=== PATIENT | male | born 1970 | race Two or more races ===

== ENCOUNTER 2017-02-16 23:30 | Emergency (ER) | payer MEDICAID, OTHER ==
[~2017-02-16] VITALS: Ht 167.6 cm; Wt 121.1 kg
[~2017-02-16 23:30] MED LIST: DIVA125T2; LEVE250T2
[2017-02-16 23:41] VITALS: BP 134/95
== END 2017-02-17 01:35 | disposition home or self-care (01) ==
LOC: ER 23:34
DX: S01.01XA Laceration without foreign body of scalp, initial encounter (principal); J45.909 Unspecified asthma, uncomplicated; R51 Headache; Z88.8 Allergy status to other drugs, medicaments and biological substances; Z85.038 Personal history of other malignant neoplasm of large intestine; W22.8XXA Striking against or struck by other objects, initial encounter; Y93.89 Activity, other specified; Y99.8 Other external cause status; Y92.89 Other specified places as the place of occurrence of the external cause
CPT/HCPCS: A4606; A6402; Z7610

== ENCOUNTER 2017-04-13 21:36 | Emergency (ER) | payer MEDICAID ==
[~2017-04-13] VITALS: Ht 165.1 cm; Wt 81.6 kg
[2017-04-13 21:48] VITALS: BP 159/69
== END 2017-04-13 22:11 | disposition home or self-care (01) ==
LOC: ER 21:36
DX: S61.412A Laceration without foreign body of left hand, initial encounter (principal); L08.9 Local infection of the skin and subcutaneous tissue, unspecified; E11.9 Type 2 diabetes mellitus without complications; J45.909 Unspecified asthma, uncomplicated; Z85.038 Personal history of other malignant neoplasm of large intestine; Z88.8 Allergy status to other drugs, medicaments and biological substances; W18.30XA Fall on same level, unspecified, initial encounter; Y92.89 Other specified places as the place of occurrence of the external cause; Y93.89 Activity, other specified; Y99.9 Unspecified external cause status
CPT/HCPCS: 99283; A4606; A6402; Z7610

== ENCOUNTER 2017-04-24 12:19 | Emergency (ER) | payer MEDICAID ==
[~2017-04-24] VITALS: Ht 170.2 cm; Wt 117.9 kg
--- NOTE | 2017-04-24 12:25 | NUR ---
pt bibra from home to er bed 10. c/o rue pain from picc line insertion site. pt thinks picc line is not working, per report, pt was seen by home nurse and was given iv antibiotics and finished it. pt is c/o swelling and thinks picc line is malfuunctioning. gowned and placed on monitor. vss. awaiting md crespo.
--- NOTE | 2017-04-24 12:29 | NUR ---
dr reyes at bedside for eval.
--- NOTE | 2017-04-24 12:37 | NUR ---
u/s tech at bedside for rue duplex ultrasound.
--- NOTE | 2017-04-24 13:09 | NUR ---
Patient discharged to home in stable condition. Written and verbal after care instructions given. Patient verbalizes understanding of instruction.
[2017-04-24 13:10] VITALS: BP 128/77
== END 2017-04-24 13:10 | disposition home or self-care (01) ==
LOC: ER 12:25
DX: M79.601 Pain in right arm (principal); Z45.2 Encounter for adjustment and management of vascular access device; E11.9 Type 2 diabetes mellitus without complications; J45.909 Unspecified asthma, uncomplicated; F17.200 Nicotine dependence, unspecified, uncomplicated; Z85.038 Personal history of other malignant neoplasm of large intestine; Z88.8 Allergy status to other drugs, medicaments and biological substances
CPT/HCPCS: 93971-TC; A4606; Z7610

== ENCOUNTER 2017-04-28 16:22 | Emergency (ER) | payer MEDICAID ==
[~2017-04-28] VITALS: Ht 170.2 cm; Wt 117.9 kg
[2017-04-28 18:22] LABS: LYMPHOCYTES # (AUTO) 2.3 /CMM (0.8-4.8); MEAN CORPUSCULAR HEMOGLOBIN 27 PG (26.0-33.0); MONOCYTES # (AUTO) 0.7 /CMM (0.1-1.30)
[2017-04-28 18:31] LABS: BASOPHILS # (AUTO) 0.3 /CMM (0.0-0.2); BASOPHILS % (AUTO) 2.6 % (0.0-2.0); EOSINOPHILS # (AUTO) 0.5 /CMM (0.0-0.7); EOSINOPHILS % (AUTO) 4.8 % (0.0-6.0); HEMATOCRIT 41 % (39-51); HEMOGLOBIN 13.6 g/dL (13.5-17.5); LYMPHOCYTES % (AUTO) 23.2 % (20.0-44.0); MEAN CORPUSCULAR HGB CONC 33 g/dl (31.0-36.0); MEAN CORPUSCULAR VOLUME 82 fL (80-96); MONOCYTES % (AUTO) 7.1 % (2.0-12.0); NEUTROPHILS # (AUTO) 6.3 /CMM (1.8-8.9); NEUTROPHILS % (AUTO) 62.3 % (43.0-81.0); PLATELET COUNT (AUTO) 174 /CMM (150-450); RDW COEFFICIENT OF VARIATION 14.1 (11.5-15.0); RED BLOOD CELL COUNT(AUTO) 5.05 MIL/uL (4.5-6.0); WHITE BLOOD COUNT (AUTO) 10.1 K/uL (4.3-11.0)
[2017-04-28 18:44] LABS: CALCIUM, SERUM 8.5 mg/dL (8.5-10.1); CREATININE 0.8 mg/dL (0.6-1.3); POTASSIUM 3.8 mmol/L (3.5-5.1)
[2017-04-28 18:49] LABS: ALBUMIN 3.3 g/dL (3.4-5.0); BILIRUBIN,DIRECT 0.1 mg/dL (0.0-0.2); BILIRUBIN,TOTAL 0.6 mg/dL (0.2-1.0)
--- NOTE | 2017-04-28 19:10 | NUR ---
46 YO MALE BB SELF. PT IS ALERT X 3, CAME TO ED FOR NEW PICC LINE INSERTION, ALSO C/O R LOWER BACK PAIN RADIATES TO R LOWER LEG. PT ASSISTED TO ER BED, SKIN WARM AND DRY, RR EVEN AND UNLABORED. PT GOWNED,PLACED ON TEXTILE EXAMINER. WILL COTNINUE TO MONITOR
--- NOTE | 2017-04-28 19:21 | NUR ---
URINE SAMPLE OBTAINED AND SENT TO LAB
--- NOTE | 2017-04-28 19:21 | NUR ---
URINE SAMPLE COLLECTED SENT TO LAB
[2017-04-28 19:25] LABS: APPEARANCE,URINE Clear (CLEAR); BILIRUBIN,URINE SMALL (NEGATIVE); BLOOD, URINE Trace-lysed Ery/uL (NEGATIVE); COLOR,URINE Dark (YELLOW); KETONES,URINE Negative (NEGATIVE); LEUKOCYTE ESTERASE ,URINE Negative (NEGATIVE); NITRITE, URINE Negative (NEGATIVE); PROTEIN,URINE 100 mg/dl (NEGATIVE); UGLUCOSE Negative (NEGATIVE)
[2017-04-28 19:48] LABS: BACTERIA,URINE None seen /HPF (None Seen); SQUAMOUS EPITHELIAL CELL,UR Few /HPF (None Seen); WBC,URINE 0-2 /HPF (0-3)
--- NOTE | 2017-04-28 19:53 | NUR ---
CALLED KIRSTIE FOR EMILY ZAMUDIO
--- NOTE | 2017-04-28 20:13 | NUR ---
Patient discharged to home in stable condition. Written and verbal after care instructions given. Patient verbalizes understanding of instruction.
[2017-04-28 20:14] VITALS: BP 118/60
== END 2017-04-28 20:16 | disposition home or self-care (01) ==
LOC: ER 16:25
DX: Z45.2 Encounter for adjustment and management of vascular access device (principal); N13.30 Unspecified hydronephrosis; E11.9 Type 2 diabetes mellitus without complications; Z79.4 Long term (current) use of insulin; E66.01 Morbid (severe) obesity due to excess calories; J45.909 Unspecified asthma, uncomplicated; F17.200 Nicotine dependence, unspecified, uncomplicated; I82.621 Acute embolism and thrombosis of deep veins of right upper extremity; R10.9 Unspecified abdominal pain; R79.1 Abnormal coagulation profile; Z98.890 Other specified postprocedural states; Z88.8 Allergy status to other drugs, medicaments and biological substances; Z79.01 Long term (current) use of anticoagulants; Z85.038 Personal history of other malignant neoplasm of large intestine
CPT/HCPCS: 36415; 71010-TC; 76770-TC; 80048-TC; 80076-TC; 81000-TC; 85025-TC; A4606; C1751; Z7610

== ENCOUNTER 2017-11-25 20:40 | Emergency (ER) | payer MEDICARE, OTHER ==
[~2017-11-25] VITALS: Ht 170.2 cm; Wt 122.9 kg
--- NOTE | 2017-11-25 20:40 | NUR ---
"IN CUSTODY; FEELS LIKE AM GONNA HAVE A SEIZURE; LAST ONE 6MONTHS AGO" BS [address] VSS NAD A/OX4 WILL CONTINUE TO MONITOR FOR ANY CHANGES DURING THE SHIFT.
[2017-11-25] MEDS ORDERED: DIVALPROEX SODIUM 500 MG TABLET.DR PO ONE (21:02)
[2017-11-25] MEDS ORDERED: LEVETIRACETAM (250 MG) 250 MG TABLET PO ONE (21:02)
--- NOTE | 2017-11-25 21:02 | NUR ---
ACCORDING TO POLICE PT HAD A "20 SECOND SEIZURE". PLACED ON NON REBREATHER 10L WITH SEZIURE PRECAUTIONS PLACED. AWAITING PT TO BE MORE ALERT IN ORDER TO GIVE MEDICATION ORDERED. ER MD MOREIRA MADE AWARE
[2017-11-25] MEDS: LEVETIRACETAM (250 MG) 250 MG TABLET PO ONE (21:13)
[2017-11-25] MEDS: DIVALPROEX SODIUM 500 MG TABLET.DR PO ONE (21:13)
--- NOTE | 2017-11-25 21:13 | NUR ---
PT STATED "WHAT HAPPENED" AFTER BECOMING MORE AWARE OF SURROUNDINGS. MEDICATION GIVEN ORDERED ONCE AWAKE ENOUGH
[2017-11-25 22:05] VITALS: BP 139/53
== END 2017-11-25 22:05 ==
LOC: ER 20:41
DX: G40.909 Epilepsy, unspecified, not intractable, without status epilepticus (principal); R42 Dizziness and giddiness; E11.9 Type 2 diabetes mellitus without complications; F17.200 Nicotine dependence, unspecified, uncomplicated; J45.909 Unspecified asthma, uncomplicated; Z85.038 Personal history of other malignant neoplasm of large intestine; Z88.8 Allergy status to other drugs, medicaments and biological substances
CPT/HCPCS: A4606; Z7610

== ENCOUNTER 2017-11-25 23:11 | Emergency (ER) | payer MEDICARE, OTHER ==
[~2017-11-25] VITALS: Ht 170.2 cm; Wt 122.5 kg
[2017-11-25 23:15] VITALS: BP 138/77
[2017-11-25 23:52] LABS: BASOPHILS # (AUTO) 0.1 /CMM (0.0-0.2); BASOPHILS % (AUTO) 0.9 % (0.0-2.0); HEMATOCRIT 43 % (39-51); HEMOGLOBIN 14.5 g/dL (13.5-17.5); LYMPHOCYTES # (AUTO) 1.7 /CMM (0.8-4.8); LYMPHOCYTES % (AUTO) 26.3 % (20.0-44.0); MEAN CORPUSCULAR HGB CONC 34 g/dl (31.0-36.0); MEAN CORPUSCULAR VOLUME 82 fL (80-96); MONOCYTES # (AUTO) 0.6 /CMM (0.1-1.30); NEUTROPHILS # (AUTO) 3.9 /CMM (1.8-8.9); NEUTROPHILS % (AUTO) 60.8 % (43.0-81.0); PLATELET COUNT (AUTO) 186 /CMM (150-450); RDW COEFFICIENT OF VARIATION 14.5 (11.5-15.0); RED BLOOD CELL COUNT(AUTO) 5.32 MIL/uL (4.5-6.0); WHITE BLOOD COUNT (AUTO) 6.5 K/uL (4.3-11.0)
[2017-11-25] MEDS: IV NS 0.9% 500 ML BAG IV ONE (23:53)
[2017-11-26 00:09] LABS: CALCIUM, SERUM 8.6 mg/dL (8.5-10.1); CARBON DIOXIDE 28 mmol/L (21-32); CHLORIDE 106 mmol/L (98-107); CREATININE 0.8 mg/dL (0.6-1.3); GLUCOSE 94 mg/dL (74-106); SODIUM SERUM 141 mmol/L (136-145); UREA NITROGEN, BLOOD 13 mg/dL (7-18)
[2017-11-26 00:12] LABS: INR 0.97 (0.87-1.13)
[2017-11-26 00:15] LABS: ALANINE AMINOTRANSFERASE 43 U/L (12-78); ALBUMIN 3.5 g/dL (3.4-5.0); ALCOHOL, BLOOD < 3 mg/dL (0-0); ALKALINE PHOSPHATASE 99 U/L (46-116); ASPARTATE AMINOTRANSFERASE 23 U/L (15-37); BILIRUBIN,DIRECT 0.1 mg/dL (0.0-0.2); BILIRUBIN,TOTAL 0.3 mg/dL (0.2-1.0)
== END 2017-11-26 00:21 | disposition home or self-care (01) ==
LOC: ER 23:13
DX: R56.9 Unspecified convulsions (principal); E11.9 Type 2 diabetes mellitus without complications; J45.909 Unspecified asthma, uncomplicated; F17.200 Nicotine dependence, unspecified, uncomplicated; Z85.038 Personal history of other malignant neoplasm of large intestine; Z88.8 Allergy status to other drugs, medicaments and biological substances
CPT/HCPCS: 36415; 80048-TC; 80076-TC; 82962-TC; 85025-TC; 85730-TC; G0480

== ENCOUNTER 2018-02-24 22:30 | Emergency (ER) | payer MEDICAID, OTHER ==
[~2018-02-24] VITALS: Ht 170.2 cm; Wt 122.5 kg
--- NOTE | 2018-02-24 23:00 | NUR ---
CALLED PT'S NAME THREE TIMES, NO RESPONSE, WILL TRY AGAIN AT LATER TIME. MADE AWARE
--- NOTE | 2018-02-25 00:12 | NUR ---
PT CALLED THREE TIMES, NO RESPONSE, NO PT STOOD UP OR MADE EYE CONTACT. WILL TRY AGAIN AT A LATER TIME
[2018-02-25 01:03] VITALS: BP 142/87
[2018-02-25] MEDS ORDERED: LIDOCAINE 2%-EPI 1:100,000 30 ML VIAL ONE (01:36)
== END 2018-02-25 02:46 | disposition home or self-care (01) ==
LOC: ER 22:32
DX: S90.552A Superficial foreign body, left ankle, initial encounter (principal); R56.9 Unspecified convulsions; I10 Essential (primary) hypertension; F31.9 Bipolar disorder, unspecified; F17.200 Nicotine dependence, unspecified, uncomplicated; Z76.0 Encounter for issue of repeat prescription; Z85.038 Personal history of other malignant neoplasm of large intestine; Z88.8 Allergy status to other drugs, medicaments and biological substances; Z88.2 Allergy status to sulfonamides; W45.8XXA Other foreign body or object entering through skin, initial encounter; Y93.89 Activity, other specified; Y92.89 Other specified places as the place of occurrence of the external cause; Y99.8 Other external cause status
CPT/HCPCS: 73610-TC; A4606; J3490; Z7610

== ENCOUNTER 2018-03-06 21:03 | Emergency (ER) | payer MEDICARE, MEDICAID ==
[~2018-03-06] VITALS: Ht 170.2 cm; Wt 122.5 kg
[2018-03-06] MEDS ORDERED: LIDOCAINE 1%-EPI 1:100,000 20 ML VIAL ONE (21:16)
[2018-03-06] MEDS ORDERED: TDAP [DIPH/PERTUSSIS/TET] 0.5 ML VIAL IM ONE ×2 (21:27→21:30)
[2018-03-06] MEDS ORDERED: LIDOCAINE 1%-EPI 1:100,000 20 ML VIAL TP ONE (21:30)
[2018-03-06] MEDS ORDERED: HYDROCODONE/APAP 5/325MG 1 EACH TABLET ONE (21:44)
[2018-03-06 21:55] VITALS: BP 164/78
[2018-03-06] MEDS ORDERED: HYDROCODONE/APAP 5/325MG 1 EACH TABLET PO ONE (22:00)
== END 2018-03-06 21:42 | disposition home or self-care (01) ==
LOC: ER 21:04
DX: S51.812A Laceration without foreign body of left forearm, initial encounter (principal); I10 Essential (primary) hypertension; E11.9 Type 2 diabetes mellitus without complications; F31.9 Bipolar disorder, unspecified; F17.200 Nicotine dependence, unspecified, uncomplicated; Z85.038 Personal history of other malignant neoplasm of large intestine; Z98.890 Other specified postprocedural states; Z88.8 Allergy status to other drugs, medicaments and biological substances; X99.2XXA Assault by sword or dagger, initial encounter; Y93.89 Activity, other specified; Y92.89 Other specified places as the place of occurrence of the external cause; Y99.8 Other external cause status
CPT/HCPCS: 90471; 90715; 99283; A4606; A6402; J3490; Z7610

== ENCOUNTER 2018-03-16 18:49 | Emergency (ER) | payer MEDICARE, MEDICAID ==
[~2018-03-16] VITALS: Ht 170.2 cm; Wt 121.1 kg
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
--- NOTE | 2018-03-16 18:50 | NUR ---
ER MD CAVAZOS AT BEDSIDE
[2018-03-16] MEDS ORDERED: MORPHINE SULFATE INJ 4 MG/ML DISP.SYRIN ONE (19:59)
[2018-03-16] MEDS ORDERED: ONDANSETRON HCL/PF 4 MG/2 ML VIAL ONE (19:59)
[2018-03-16] MEDS ORDERED: MORPHINE SULFATE INJ 2 MG/ML DISP.SYRIN IV ONE (20:00)
[2018-03-16] MEDS ORDERED: IV NS 0.9% 500 ML BAG IV ONE (20:00)
[2018-03-16] MEDS ORDERED: ONDANSETRON HCL/PF 4 MG/2 ML VIAL IVP ONE (20:00)
[2018-03-16 20:04] LABS: BASOPHILS % (AUTO) 0.6 % (0.0-2.0); EOSINOPHILS % (AUTO) 3.5 % (0.0-6.0); HEMATOCRIT 42 % (39-51); HEMOGLOBIN 13.6 g/dL (13.5-17.5); LYMPHOCYTES % (AUTO) 26.5 % (20.0-44.0); MEAN CORPUSCULAR HEMOGLOBIN 27 PG (26.0-33.0); MEAN CORPUSCULAR HGB CONC 33 g/dl (31.0-36.0); MEAN CORPUSCULAR VOLUME 83 fL (80-96); MONOCYTES # (AUTO) 0.6 /CMM (0.1-1.30); MONOCYTES % (AUTO) 8.4 % (2.0-12.0); NEUTROPHILS # (AUTO) 4.6 /CMM (1.8-8.9); PLATELET COUNT (AUTO) 242 /CMM (150-450); RDW COEFFICIENT OF VARIATION 13.3 (11.5-15.0); RED BLOOD CELL COUNT(AUTO) 5.04 MIL/uL (4.5-6.0); WHITE BLOOD COUNT (AUTO) 7.5 K/uL (4.3-11.0)
[2018-03-16 20:14] LABS: CALCIUM, SERUM 8.9 mg/dL (8.5-10.1); CARBON DIOXIDE 30 mmol/L (21-32); CHLORIDE 105 mmol/L (98-107); CREATININE 0.9 mg/dL (0.6-1.3); GLUCOSE 129 mg/dL (74-106); POTASSIUM 3.6 mmol/L (3.5-5.1); SODIUM SERUM 139 mmol/L (136-145); UREA NITROGEN, BLOOD 15 mg/dL (7-18)
[2018-03-16] MEDS ORDERED: IOHEXOL-350 100 ML VIAL IV ONE (20:16)
[2018-03-16 20:18] LABS: INR 0.98 (0.85-1.15)
[2018-03-16 20:19] LABS: ALANINE AMINOTRANSFERASE 31 U/L (12-78); ALBUMIN 3.4 g/dL (3.4-5.0); ALKALINE PHOSPHATASE 105 U/L (46-116); ASPARTATE AMINOTRANSFERASE 18 U/L (15-37); BILIRUBIN,DIRECT 0.1 mg/dL (0.0-0.2); BILIRUBIN,TOTAL 0.3 mg/dL (0.2-1.0); TOTAL PROTEIN, SERUM 7.8 g/dL (6.4-8.2)
[2018-03-16 20:22] LABS: TROPONIN I < 0.017 ng/mL (0.00-0.056)
--- NOTE | 2018-03-16 20:25 | NUR ---
PT TO CT
--- NOTE | 2018-03-16 20:41 | NUR ---
PT BACK FROM CT
[2018-03-16 22:13] VITALS: BP 144/97
== END 2018-03-16 22:14 | disposition home or self-care (01) ==
LOC: ER 19:08
DX: I27.20 Pulmonary hypertension, unspecified (principal); R07.89 Other chest pain; F31.9 Bipolar disorder, unspecified; F17.200 Nicotine dependence, unspecified, uncomplicated; E11.9 Type 2 diabetes mellitus without complications; J45.909 Unspecified asthma, uncomplicated; G40.909 Epilepsy, unspecified, not intractable, without status epilepticus; Z85.038 Personal history of other malignant neoplasm of large intestine; Z86.718 Personal history of other venous thrombosis and embolism; Z88.8 Allergy status to other drugs, medicaments and biological substances; Z88.2 Allergy status to sulfonamides
CPT/HCPCS: 36415; 71045; 71275; 80048; 80076; 84484; 85025; 85730; 93005; 96374; 96375; 99285; 99406; A4606; J2270; J2405; J7040; Q9967; Z7610

== ENCOUNTER 2018-04-21 14:17 | Emergency (ER) | payer MEDICARE, MEDICAID ==
[~2018-04-21] VITALS: Ht 170.2 cm; Wt 123.4 kg
[2018-04-21 14:17] VITALS: BP 158/87
== END 2018-04-21 16:54 | disposition home or self-care (01) ==
LOC: ER 14:19
DX: M25.561 Pain in right knee (principal); I10 Essential (primary) hypertension; E11.9 Type 2 diabetes mellitus without complications; F17.200 Nicotine dependence, unspecified, uncomplicated; F31.9 Bipolar disorder, unspecified; Z85.038 Personal history of other malignant neoplasm of large intestine; Z88.8 Allergy status to other drugs, medicaments and biological substances
CPT/HCPCS: 73564; 99284; A4606; Z7610

== ENCOUNTER 2018-08-05 03:38 | Emergency (ER) | payer MEDICARE, MEDICAID ==
[~2018-08-05] VITALS: Ht 170.2 cm; Wt 117.9 kg
--- NOTE | 2018-08-05 03:47 | NUR ---
PT [id number] FROM HOME COMPLAINING OF RIGHT LOWER EXTREMITY PAIN X1 DAY. STATES "MY RIGHT LEFT ALWAYS FEELS COLD." PT STATES HE HAD SPINAL SURGERY 07/08/2018. PT NORMALLY ABLE TO AMBULATE WITH CANE, STATES PAIN IS WORSE WITH AMBULATION. PT AAOX4. RESPIRATIONS EVEN AND UNLABORED. SKIN WARM AND INTACT. PT PLACED ON MONITOR, WILL CONTINUE TO MONITOR. WAITING MD EVALUATION
--- NOTE | 2018-08-05 03:56 | NUR ---
MD AT BEDSIDE FOR EVALUATION
[2018-08-05] MEDS ORDERED: ONDANSETRON 4 MG TAB.RAPDIS SL ONE (04:00)
[2018-08-05] MEDS ORDERED: HYDROCODONE/APAP 10/325MG 1 EA TABLET PO ONE (04:00)
[2018-08-05] MEDS ORDERED: HYDROCODONE/APAP 10/325MG 1 EA TABLET ONE ×2 (04:11→04:14)
[2018-08-05] MEDS ORDERED: ONDANSETRON 4 MG TAB.RAPDIS ONE ×2 (04:12→04:15)
--- NOTE | 2018-08-05 04:48 | NUR ---
ULTRASOUND AT BEDSIDE
--- NOTE | 2018-08-05 05:39 | NUR ---
DR. CAVAZOS SPOKE TO DR. BRADFORD, VASCULAR SX, RE: PT. DR BRADFORD IS NOT ON TONIGHT, DR CAVAZOS SPOKE TO AUTOMOBILE LIGHTS ASSEMBLER FOR DR. BRADFORD.
--- NOTE | 2018-08-05 06:01 | NUR ---
Patient discharged to home in stable condition. Written and verbal after care instructions given. Patient verbalizes understanding of instruction. Pt instructed not to drive, pt verbalized understanding
[2018-08-05 06:04] VITALS: BP 147/92
== END 2018-08-05 06:05 | disposition home or self-care (01) ==
LOC: ER 03:41
DX: I73.9 Peripheral vascular disease, unspecified (principal); G40.909 Epilepsy, unspecified, not intractable, without status epilepticus; F31.9 Bipolar disorder, unspecified; I10 Essential (primary) hypertension; F17.200 Nicotine dependence, unspecified, uncomplicated; Z85.038 Personal history of other malignant neoplasm of large intestine; Z88.8 Allergy status to other drugs, medicaments and biological substances
CPT/HCPCS: 93926-TC; 93971-TC; Q0162

== ENCOUNTER 2018-08-10 03:46 | Emergency (ER) | payer MEDICARE, MEDICAID ==
[~2018-08-10] VITALS: Ht 170.2 cm; Wt 121.1 kg
--- NOTE | 2018-08-10 04:50 | NUR ---
Pt came in complaining of pain and tingling sensation on his left arm and left leg which started last night. Pt describes his pain as 9/10 on scale. Pt is A, O/4, walks independently, on RA. Pt reports hx of back surgery in July 2018.
--- NOTE | 2018-08-10 05:50 | NUR ---
US in progress at BS.
--- NOTE | 2018-08-10 07:00 | NUR ---
US done; pt resting comfortably. VSS.
--- NOTE | 2018-08-10 07:32 | NUR ---
Pt resting comfortably in bed. Report given to KEVIN Davis, for DIOR.
--- NOTE | 2018-08-10 08:03 | NUR ---
Patient discharged to home in stable condition. Written and verbal after care instructions given. Patient verbalizes understanding of instruction.
[2018-08-10 08:04] VITALS: BP 132/68
== END 2018-08-10 08:08 | disposition home or self-care (01) ==
LOC: ER 03:46
DX: I73.89 Other specified peripheral vascular diseases (principal); R56.9 Unspecified convulsions; I10 Essential (primary) hypertension; E11.9 Type 2 diabetes mellitus without complications; F31.9 Bipolar disorder, unspecified; F17.200 Nicotine dependence, unspecified, uncomplicated; Z85.038 Personal history of other malignant neoplasm of large intestine; Z98.890 Other specified postprocedural states; Z88.8 Allergy status to other drugs, medicaments and biological substances
CPT/HCPCS: 93926; 93931; 93971 ×2; 99284; A4606; 93930-TC

== ENCOUNTER 2018-10-19 23:27 | Emergency (ER) | payer MEDICARE, MEDICAID ==
[~2018-10-19] VITALS: Ht 170.2 cm; Wt 121.6 kg
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
[2018-10-20 00:09] VITALS: BP 139/88
--- NOTE | 2018-10-20 00:46 | NUR ---
PT TAKEN TO CT.
[2018-10-20] MEDS ORDERED: IBUPROFEN 400 MG TABLET ONE (01:13)
[2018-10-20] MEDS ORDERED: IBUPROFEN 400 MG TABLET PO ONE (01:30)
--- NOTE | 2018-10-20 01:45 | NUR ---
[employer] AT BEDSIDE
== END 2018-10-20 02:09 | disposition home or self-care (01) ==
LOC: ER 23:45
DX: S01.01XA Laceration without foreign body of scalp, initial encounter (principal); S09.8XXA Other specified injuries of head, initial encounter; R42 Dizziness and giddiness; R56.9 Unspecified convulsions; E11.9 Type 2 diabetes mellitus without complications; I10 Essential (primary) hypertension; F31.9 Bipolar disorder, unspecified; F10.10 Alcohol abuse, uncomplicated; F17.200 Nicotine dependence, unspecified, uncomplicated; Y90.9 Presence of alcohol in blood, level not specified; Z98.890 Other specified postprocedural states; Z85.038 Personal history of other malignant neoplasm of large intestine; Z88.8 Allergy status to other drugs, medicaments and biological substances; Y04.8XXA Assault by other bodily force, initial encounter; Y93.89 Activity, other specified; Y92.89 Other specified places as the place of occurrence of the external cause; Y99.8 Other external cause status
CPT/HCPCS: 12001; 70450; 99284; A4606; A6402

== ENCOUNTER 2018-12-19 01:00 | Emergency (ER) | payer MEDICARE, MEDICAID ==
[~2018-12-19] VITALS: Ht 170.2 cm; Wt 117.9 kg
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
--- NOTE | 2018-12-19 01:19 | NUR ---
SEEN AND EXAMINED BY DR MOREIRA.
--- NOTE | 2018-12-19 01:31 | NUR ---
D/C THIS PATIENT. RAC -REDNESS, -FOREIGN BODY FOUND. INSTRUCTIONS GIVEN TO PATIENT. PATIENT LEFT ER AT THIS TIME AMBULATORY, BY SELF.
[2018-12-19 01:33] VITALS: BP 151/98
== END 2018-12-19 01:34 | disposition home or self-care (01) ==
LOC: ER 01:03
DX: L90.5 Scar conditions and fibrosis of skin (principal); R56.9 Unspecified convulsions; I10 Essential (primary) hypertension; E11.9 Type 2 diabetes mellitus without complications; F31.9 Bipolar disorder, unspecified; F41.9 Anxiety disorder, unspecified; F10.10 Alcohol abuse, uncomplicated; F17.200 Nicotine dependence, unspecified, uncomplicated; Y90.9 Presence of alcohol in blood, level not specified; Z90.49 Acquired absence of other specified parts of digestive tract; Z85.038 Personal history of other malignant neoplasm of large intestine; Z98.890 Other specified postprocedural states; Z88.8 Allergy status to other drugs, medicaments and biological substances; Z71.1 Person with feared health complaint in whom no diagnosis is made

== ENCOUNTER 2019-01-01 18:09 | Emergency (ER) | payer MEDICARE, MEDICAID ==
[~2019-01-01] VITALS: Ht 170.2 cm; Wt 113.4 kg
[2019-01-01 18:15] VITALS: BP 125/74
== END 2019-01-01 18:54 | disposition home or self-care (01) ==
LOC: ER 18:13
DX: S50.851A Superficial foreign body of right forearm, initial encounter (principal); R56.9 Unspecified convulsions; E11.9 Type 2 diabetes mellitus without complications; I10 Essential (primary) hypertension; F31.9 Bipolar disorder, unspecified; F10.10 Alcohol abuse, uncomplicated; F17.200 Nicotine dependence, unspecified, uncomplicated; Y90.9 Presence of alcohol in blood, level not specified; Z85.038 Personal history of other malignant neoplasm of large intestine; Z98.890 Other specified postprocedural states; Z88.8 Allergy status to other drugs, medicaments and biological substances; W45.8XXA Other foreign body or object entering through skin, initial encounter; Y93.89 Activity, other specified; Y92.89 Other specified places as the place of occurrence of the external cause; Y99.8 Other external cause status
CPT/HCPCS: Z7502

== ENCOUNTER 2019-01-12 18:07 | Emergency (ER) | payer MEDICARE, MEDICAID ==
[~2019-01-12] VITALS: Ht 170.2 cm; Wt 122.0 kg
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
[2019-01-12] MEDS ORDERED: CLINDAMYCIN 600 MG in IV D5W 100 ML IV ONE (18:30)
[2019-01-12] MEDS ORDERED: IV NS 0.9% 1,000 ML BAG IV ONE (18:30)
[2019-01-12] MEDS ORDERED: ONDANSETRON HCL/PF 4 MG/2 ML VIAL IVP ONE (18:30)
[2019-01-12 18:50] LABS: BASOPHILS # (AUTO) 0.1 /CMM (0.0-0.2); EOSINOPHILS % (AUTO) 3.7 % (0.0-6.0); HEMATOCRIT 40 % (39-51); HEMOGLOBIN 12.9 g/dL (13.5-17.5); MEAN CORPUSCULAR HGB CONC 33 g/dl (31.0-36.0); MEAN CORPUSCULAR VOLUME 81 fL (80-96); MONOCYTES # (AUTO) 0.8 /CMM (0.1-1.30); MONOCYTES % (AUTO) 10.1 % (2.0-12.0); NEUTROPHILS # (AUTO) 4.5 /CMM (1.8-8.9); NEUTROPHILS % (AUTO) 59.2 % (43.0-81.0); PLATELET COUNT (AUTO) 193 /CMM (150-450); RED BLOOD CELL COUNT(AUTO) 4.87 MIL/uL (4.5-6.0); WHITE BLOOD COUNT (AUTO) 7.6 K/uL (4.3-11.0)
--- NOTE | 2019-01-12 18:50 | NUR ---
WOUND CULTURE COLLECTED FROM RIGHT ARMPIT AND SENT TO LAB.
[2019-01-12] MEDS ORDERED: ONDANSETRON HCL/PF 4 MG/2 ML VIAL ONE (18:51)
[2019-01-12 18:59] LABS: CALCIUM, SERUM 8.2 mg/dL (8.5-10.1); CARBON DIOXIDE 26 mmol/L (21-32); CHLORIDE 106 mmol/L (98-107); CREATININE 0.9 mg/dL (0.6-1.3); GLUCOSE 113 mg/dL (74-106); POTASSIUM 3.7 mmol/L (3.5-5.1); SODIUM SERUM 142 mmol/L (136-145); UREA NITROGEN, BLOOD 16 mg/dL (7-18)
[2019-01-12 19:13] LABS: ALANINE AMINOTRANSFERASE 30 U/L (12-78); ALBUMIN 3.2 g/dL (3.4-5.0); ALKALINE PHOSPHATASE 119 U/L (46-116); ASPARTATE AMINOTRANSFERASE 20 U/L (15-37); BILIRUBIN,DIRECT 0.1 mg/dL (0.0-0.2); BILIRUBIN,TOTAL 0.2 mg/dL (0.2-1.0); TOTAL PROTEIN, SERUM 7.5 g/dL (6.4-8.2)
--- NOTE | 2019-01-12 19:18 | NUR ---
ENDORSED TO AMAN FOR DIOR.
--- NOTE | 2019-01-12 19:20 | NUR ---
REPORT REC'D FROM KEVIN DOYLE FOR DIOR.
--- NOTE | 2019-01-12 19:55 | NUR ---
IV removed. Catheter intact and site benign. Pressure and 4x4 applied to site. No bleeding noted. PT'S WOUND IS BEING IRRIGATED BY NEY EMT
--- NOTE | 2019-01-12 20:03 | NUR ---
Patient discharged to home in stable condition. Written and verbal after care instructions given. Patient verbalizes understanding of instruction AND RX. PT WAS INSTRUCTED TO RETURN IN 2 DAYS FOR A WOUND CHECK. VSS
--- NOTE | 2019-01-12 20:03 | NUR ---
Neri SALMERON NP IS AT THE BEDSIDE FOR WOUND PACKING.
[2019-01-12 20:05] VITALS: BP 125/75
== END 2019-01-12 20:05 | disposition home or self-care (01) ==
LOC: ER 18:11
DX: T81.49XA Infection following a procedure, other surgical site, initial encounter (principal); I10 Essential (primary) hypertension; E11.9 Type 2 diabetes mellitus without complications; F31.9 Bipolar disorder, unspecified; F17.200 Nicotine dependence, unspecified, uncomplicated; Z85.038 Personal history of other malignant neoplasm of large intestine; Z98.890 Other specified postprocedural states; Z88.8 Allergy status to other drugs, medicaments and biological substances; Z79.899 Other long term (current) drug therapy
CPT/HCPCS: 36415; 80048; 80076; 83605; 84484; 85025; 85730; 87040 ×2; 87070; 87077; 96365; 96375; 99283; A6407; J2405; J3490; J7030; J7060

== ENCOUNTER 2019-02-06 23:23 | Emergency (ER) | payer MEDICARE, MEDICAID ==
[~2019-02-06] VITALS: Ht 170.2 cm; Wt 117.9 kg
--- NOTE | 2019-02-07 01:26 | NUR ---
CALLED PT THREE TIMES IN WAITING ROOM. NO RESPONSE.
--- NOTE | 2019-02-07 01:44 | NUR ---
CALLED PT THREE TIMES IN WAITING ROOM. NO RESPONSE.
[2019-02-07 03:43] VITALS: BP 167/80
--- NOTE | 2019-02-07 03:59 | NUR ---
SEEN AND EXAMINED BY .
--- NOTE | 2019-02-07 04:17 | NUR ---
WOUND CARE DONE.
--- NOTE | 2019-02-07 04:29 | NUR ---
ENERGY CROP FARMER AT BEDSIDE FOR XRAY.
--- NOTE | 2019-02-07 05:10 | NUR ---
Patient discharged to home in stable condition. Written and verbal after care instructions given. Patient verbalizes understanding of instruction.
== END 2019-02-07 05:12 | disposition home or self-care (01) ==
LOC: ER 23:27
DX: M25.511 Pain in right shoulder (principal); R56.9 Unspecified convulsions; I10 Essential (primary) hypertension; F31.9 Bipolar disorder, unspecified; E11.9 Type 2 diabetes mellitus without complications; F10.10 Alcohol abuse, uncomplicated; F17.200 Nicotine dependence, unspecified, uncomplicated; Y90.9 Presence of alcohol in blood, level not specified; Z48.01 Encounter for change or removal of surgical wound dressing; Z85.038 Personal history of other malignant neoplasm of large intestine; Z98.890 Other specified postprocedural states; Z88.8 Allergy status to other drugs, medicaments and biological substances; W01.0XXA Fall on same level from slipping, tripping and stumbling without subsequent striking against object, initial encounter; Y93.89 Activity, other specified; Y92.89 Other specified places as the place of occurrence of the external cause; Y99.8 Other external cause status
CPT/HCPCS: 73030; 99283; A6403

== ENCOUNTER 2019-02-27 23:40 | Emergency (ER) | payer MEDICARE, MEDICAID ==
[~2019-02-27] VITALS: Ht 170.2 cm; Wt 117.9 kg
[2019-02-28] MEDS ORDERED: LIDOCAINE 0.5%-EPI 1:200,000 50 ML VIAL ONE (00:55)
[2019-02-28] MEDS ORDERED: KETOROLAC TROMETHAMINE INJ 30 MG/ML VIAL IM ONE (01:30)
[2019-02-28] MEDS ORDERED: KETOROLAC TROMETHAMINE INJ 30 MG/ML VIAL ONE (01:31)
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
--- NOTE | 2019-02-28 03:33 | NUR ---
AT [facility] SUTURING LAC
--- NOTE | 2019-02-28 03:54 | NUR ---
Patient discharged to home in stable condition. Written and verbal after care instructions given. Patient verbalizes understanding of instruction.
[2019-02-28 03:57] VITALS: BP 128/78
== END 2019-02-28 04:01 | disposition home or self-care (01) ==
LOC: ER 23:42
DX: S61.412A Laceration without foreign body of left hand, initial encounter (principal); R56.9 Unspecified convulsions; F31.9 Bipolar disorder, unspecified; I10 Essential (primary) hypertension; E11.9 Type 2 diabetes mellitus without complications; F10.10 Alcohol abuse, uncomplicated; F17.200 Nicotine dependence, unspecified, uncomplicated; Y90.9 Presence of alcohol in blood, level not specified; Z85.038 Personal history of other malignant neoplasm of large intestine; Z98.890 Other specified postprocedural states; Z88.8 Allergy status to other drugs, medicaments and biological substances; W22.8XXA Striking against or struck by other objects, initial encounter; Y93.89 Activity, other specified; Y92.89 Other specified places as the place of occurrence of the external cause; Y99.8 Other external cause status
CPT/HCPCS: 12002; 73130; 96372; 99283; A6403; J1885; J3490

== ENCOUNTER 2019-03-11 03:08 | Emergency (ER) | payer MEDICARE, MEDICAID ==
[~2019-03-11] VITALS: Ht 170.2 cm; Wt 117.9 kg
[2019-03-11 03:12] VITALS: BP 174/84
[2019-03-11] MEDS ORDERED: CEPHALEXIN MONOHYDRATE 500 MG CAPSULE PO ONE ×2 (04:00→04:21)
== END 2019-03-11 04:26 | disposition home or self-care (01) ==
LOC: ER 03:19
DX: T81.49XA Infection following a procedure, other surgical site, initial encounter (principal); I10 Essential (primary) hypertension; E11.9 Type 2 diabetes mellitus without complications; F31.9 Bipolar disorder, unspecified; F17.200 Nicotine dependence, unspecified, uncomplicated; Z98.890 Other specified postprocedural states; Z85.038 Personal history of other malignant neoplasm of large intestine; Z88.8 Allergy status to other drugs, medicaments and biological substances; Z79.899 Other long term (current) drug therapy
CPT/HCPCS: 29125; 99283; A6403

== ENCOUNTER 2019-04-21 02:53 | Emergency (ER) | payer MEDICARE, MEDICAID ==
[~2019-04-21] VITALS: Ht 170.2 cm; Wt 122.5 kg
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
[2019-04-21] MEDS ORDERED: CEFTRIAXONE 1 G VIAL ONE (03:10)
[2019-04-21] MEDS ORDERED: HYDROCODONE/APAP 10/325MG 1 EA TABLET ONE (03:10)
[2019-04-21] MEDS ORDERED: ONDANSETRON 4 MG TAB.RAPDIS ONE (03:10)
--- NOTE | 2019-04-21 03:26 | NUR ---
[employer] STILL AT BEDSIDE. XRAY AWAITING TO BE TAKEN.
[2019-04-21] MEDS ORDERED: CEFTRIAXONE 1 G VIAL IM ONE (03:30)
[2019-04-21] MEDS ORDERED: HYDROCODONE/APAP 10/325MG 1 EA TABLET PO ONE (03:30)
[2019-04-21] MEDS ORDERED: ONDANSETRON 4 MG TAB.RAPDIS SL ONE (03:30)
--- NOTE | 2019-04-21 04:13 | NUR ---
Patient discharged to home in stable condition. Written and verbal after care instructions given. Patient verbalizes understanding of instruction. Pt ambulatory with a steady gait
[2019-04-21 04:14] VITALS: BP 158/96
== END 2019-04-21 04:24 | disposition home or self-care (01) ==
LOC: ER 02:55
DX: S60.552A Superficial foreign body of left hand, initial encounter (principal); S69.82XA Other specified injuries of left wrist, hand and finger(s), initial encounter; R56.9 Unspecified convulsions; I10 Essential (primary) hypertension; E11.9 Type 2 diabetes mellitus without complications; F31.9 Bipolar disorder, unspecified; F10.10 Alcohol abuse, uncomplicated; F17.200 Nicotine dependence, unspecified, uncomplicated; Y90.9 Presence of alcohol in blood, level not specified; Z71.6 Tobacco abuse counseling; Z85.038 Personal history of other malignant neoplasm of large intestine; Z98.890 Other specified postprocedural states; Z88.8 Allergy status to other drugs, medicaments and biological substances; W45.8XXA Other foreign body or object entering through skin, initial encounter; Y93.89 Activity, other specified; Y92.89 Other specified places as the place of occurrence of the external cause; Y99.8 Other external cause status
CPT/HCPCS: 73130; 96372; 99283; 99406; A6403; J0696; Q0162

== ENCOUNTER 2019-04-25 03:07 | Inpatient (IN) | payer MEDICARE, MEDICAID ==
[~2019-04-25] VITALS: Ht 170.2 cm; Wt 121.1 kg
--- NOTE | 2019-04-25 07:42 | NUR ---
RN OPENING/ADMISSION NOTE PT WAS BROUGHT TO ROOM AT 0648 IN STABLE CONDITION, A/O X4 BREATHING EVEN AND UNLABORED ON RA, NO S/S OF ANY DISTRESS OR PAIN NOTED AT THIS TIME, IV IS PATENT AND INTACT, NOTED TO HAVE MULTIPLE WOUNDS ON BODY, ON TELE MONITOR, SAFETY PRECAUTIONS IN PLACE, CALL LIGHT WITHIN REACH, WILL MONITOR ACCORDINGLY
--- NOTE | 2019-04-25 07:55 | NUR ---
RN NOTE PHOTOS OF SKIN WOUND DOCUMENTED AT THIS TIME, PT REFUSED FOR LOWER HALF OF BODY BUT WHEN CHANGED NO WOUNDS WERE NOTED. PT WAS NOTED TO HAVE UPPER BODY WOUNDS WHICH WERE DOCUMENTED IN THE CHART.
[2019-04-25 08:00] VITALS: BP 127/88
--- NOTE | 2019-04-25 08:00 | NUR ---
RN NOTE MADE AWARE THAT PT IS ON THE FLOOR, HE WILL SEE PT AND WILL IMPLEMENT ORDERS. WILL AWAIT FOR ORDERS AND WILL MONITOR ACCORDINGLY
--- NOTE | 2019-04-25 08:40 | NUR ---
RN NOTE SEEN PT AT THIS TIME MADE AWARE THAT NEED ADMISSION ORDERS ARE NEEDED, WILL AWAIT FOR ORDERS.
[2019-04-25] MEDS ORDERED: CEPH-570 PO (08:52)
[2019-04-25] MEDS ORDERED: ALBUT2 CONTNEB (08:52)
[2019-04-25] MEDS ORDERED: OXYC30TA86 PO (08:52)
[2019-04-25] MEDS ORDERED: CANCER MED (08:52)
[2019-04-25 11:35] VITALS: BP 176/93
--- NOTE | 2019-04-25 11:48 | NUR ---
RN NOTE DR WONG PAGED REGARDING PT BEING IN PAIN AND NEEDING PAIN MEDICINE, ORDER FOR NORCO GIVEN AT THIS TIME, WILL IMPLEMENT ACCORDINGLY
--- NOTE | 2019-04-25 12:53 | NUR ---
WOUND CARE CONSULT: PT PRESENTS WITH WOUND TO RT FOREHEAD AND TO LEFT HAND, PRESENT ON ADMISSION. PT REFUSED FULL SKIN ASSESSMENT. PT IS CONTINENT PER NURSING REPORT AND INDEPENDENT WITH BED MOBILITY. RECOMMEND SURGICAL CONSULT. DR ASHRAF NOTIFIED OF CONSULT REQUEST. WILL SEE PRN. DEFER TO SURGICAL TEAM FOR WOUND TREATMENT PLAN.
[2019-04-25 16:00] VITALS: BP 160/76
[2019-04-25] MEDS ORDERED: LIDOCAINE 1%-EPI 1:100,000 20 ML VIAL TP STA (16:09)
[2019-04-25] MEDS: HYDROCODONE/APAP 5/325MG 1 EACH TABLET PO PRN (16:18)
[2019-04-25] MEDS: NEOMY SULF/BACITRAC ZN/POLY 15 GM TUBE TP SCH (17:34)
--- NOTE | 2019-04-25 18:00 | NUR ---
RN NOTE WOUND CARE DONE AT THIS TIME, AND PT FOREHEAD WAS STITCHED BY YADI LINDO AT THIS TIME
--- NOTE | 2019-04-25 18:07 | NUR ---
RN NOTE MADE AWARE THAT PT NEED HOME MEDS TO RECONCILED AND THAT ALL HE HAS IS NORCO ON [facility]. HE WAS MADE AWARE AND STATED THAT HE WILL LOOK AT IT LATER.
--- NOTE | 2019-04-25 18:36 | NUR ---
RN CLOSING NOTE PT IN BED AT LOWEST AND LOCKED POSITION WITH SIDE RAILS UP X2, A/O X4 BREATHING EVEN AND UNLABORED ON RA, WITH NO S/S OF ANY DISTRESS OR PAIN AT THIS TIME, IV IS PATENT AND INTACT, SIGNIFICANT OTHER AT BEDSIDE, SAFETY PRECAUTIONS IN PLACE, CALL LIGHT WITHIN REACH, ALL NEEDS ATTENDED TO, WILL ENDORSE TO NIGHT RN FOR DIOR.
--- NOTE | 2019-04-25 19:23 | NUR ---
RN OPENING NOTES RECEIVED PATIENT FROM KEVIN RAYMUNDO. SIGNIFICANT OTHER AT BED SIDE. PATIENT IS A/O X 4. NO SIGNS OF RESPIRATORY DISTRESS. PATIENT DENEIS SHORTNESS OF BREATH AT THIS TIME. PATIENT DENIES PAIN AT THIS TIME. IV SITE PATENT AND INTACT. SAFETY PRECAUTIONS IMPLEMENTED; CALL LIGHT WITHIN REACH, BED LOWEST POSITION, BED LOCKED, SIDE RAILS UP X2. WILL CONTINUE TO MONITOR.
[2019-04-25 20:00] VITALS: BP 133/78
[2019-04-25 20:22] VITALS: BP 133/78
[2019-04-26] VITALS (10 sets, daily range): BP systolic 112–154; BP diastolic 63–99
[2019-04-26] MEDS: HYDROCODONE/APAP 5/325MG 1 EACH TABLET PO PRN ×3 (02:04→17:32)
--- NOTE | 2019-04-26 02:10 | NUR ---
RN NOTES PATIENT REQUESTED NORCO FOR PAIN 03/11, STATES PAIN IS RESIDING IN LOWER BACK. VITAL SIGNS STABLE. WILL CONTINUE TO MONITOR.
--- NOTE | 2019-04-26 06:38 | NUR ---
RN CLOSING NOTES PATIENT IS CURRENTLY IN BED, ASLEEP, EASILY AROUSABLE TO VOICE. NO SIGNS OF RESPIRATORY DISTRESS. NO SHORTNESS OF BREATH NOTED. PATIENT TOLERATING ROOM AIR WELL. IV SITE IS INTACT AND PATENT. NO SIGNS OF FACIAL GRIMACING INDICATING PAIN OR DISCOMFORT AT THIS TIME. ALL NEEDS ATTENDED TO AT THIS TIME. PATIENT KEPT CLEAN, DRY, AND COMFORTABLE. PATIENT CURRENTLY SR ON TELE MONITOR. WOUND CARE IMPLEMENTED. SAFETY PRECAUTIONS IMPLEMENTED; CALL LIGHT WITHIN REACH, BED LOWEST POSITION, BED LOCKED, SIDE RAILS UP X2. WILL ENDORSE TO DAYSHIFT NURSE FOR CONTINUITY OF CARE.
--- NOTE | 2019-04-26 06:47 | NUR ---
RN NOTES OVERLOCK COLLAR SETTER UNABLE TO DRAW BLOOD SPECIMEN FROM PATIENT. WILL INFORM DAYSHIFT NURSE, ANOTHER ALL TERRAIN VEHICLE TECHNICIAN WILL RETRY LATER.
--- NOTE | 2019-04-26 07:25 | NUR ---
COMMUNICATION CONSULTANT OPENING NOTES RECEIVED PATIENT IN BED RESTING COMFORTABLY IN MODERATE HIGH BACK REST. A/O X4. ON TELE MONITORING WITH CURRENT READING OF SR, HR OF 70'S. NO S/S OF DISTRESS AT THIS TIME. IV ACCESS ON LEFT AC #20, SL. PATENT AND INTACT. SAFETY MEASURES IN PLACE, BED IN LOW LOCKED POSITION WITH SIDE RAILS UP X2. CALL LIGHT WITHIN EASY REACH. WILL CONTINUE TO MONITOR.
[2019-04-26] MEDS ORDERED: ALBUTEROL FS 2.5 MG/3 ML VIAL.NEB CONTNEB PRN (07:30)
[2019-04-26] MEDS: NEOMY SULF/BACITRAC ZN/POLY 15 GM TUBE TP SCH (08:44)
--- NOTE | 2019-04-26 11:20 | NUR ---
MS BROWN NOTE PATIENT WAS FOUND ON FLOOR. PATIENT WAS UNRESPONSIVE. RAPID RESPONSE ACTIVATED. Addendum: 04/27/19 at 0100 by LUNA CLAIRE RN TIME WAS 2320 04/26/19 NOT 1120.
[2019-04-26 16:32] LABS: BASOPHILS # (AUTO) 0.1 /CMM (0.0-0.2); BASOPHILS % (AUTO) 0.8 % (0.0-2.0); EOSINOPHILS % (AUTO) 4.2 % (0.0-6.0); HEMATOCRIT 42 % (39-51); LYMPHOCYTES # (AUTO) 1.9 /CMM (0.8-4.8); LYMPHOCYTES % (AUTO) 30.1 % (20.0-44.0); MEAN CORPUSCULAR HGB CONC 33 g/dl (31.0-36.0); MEAN CORPUSCULAR VOLUME 83 fL (80-96); MONOCYTES # (AUTO) 0.7 /CMM (0.1-1.30); MONOCYTES % (AUTO) 10.7 % (2.0-12.0); NEUTROPHILS # (AUTO) 3.5 /CMM (1.8-8.9); NEUTROPHILS % (AUTO) 54.2 % (43.0-81.0); PLATELET COUNT (AUTO) 199 /CMM (150-450); RED BLOOD CELL COUNT(AUTO) 5.07 MIL/uL (4.5-6.0); WHITE BLOOD COUNT (AUTO) 6.5 K/uL (4.3-11.0)
[2019-04-26 16:37] LABS: CALCIUM, SERUM 8.6 mg/dL (8.5-10.1); CREATININE 0.7 mg/dL (0.6-1.3); POTASSIUM 3.8 mmol/L (3.5-5.1)
--- NOTE | 2019-04-26 18:55 | NUR ---
MS RN CLOSING NOTES PATIENT IN BED RESTING COMFORTABLY IN MODERATE HIGH BACK REST. A/O X4. ON RA, TOLERATING WELL. IV ACCESS ON LEFT AC #20, SL. PATENT AND INTACT. ALL NURSING NEEDS ATTENDED. SAFETY MEASURES IN PLACE, BED IN LOW LOCKED POSITION WITH SIDE RAILS UP X2. CALL LIGHT WITHIN EASY REACH. WILL ENDORSED TO RENTAL CAR PORTER NURSE FOR DIOR.
--- NOTE | 2019-04-26 19:30 | NUR ---
MS RN OPENING NOTE RECEIVED PATIENT IN BED. A/O 4. TOLERATING ROOM AIR. RESPIRATIONS ARE EVEN AND UNLABORED. NO SIGN OF SOB NOTED. DENIES PAIN AT THIS TIME. IN NO APPARENT DISTRESS AT THIS TIME. IV ACCESS IN LAC #20 PATENT AND SALINE LOCKED. BED IS LOW AND LOCKED, HOB ELEVATED 45 DEGREES, SIDE RAILS UP X2. CALL LIGHT WITHIN REACH. WILL CONTINUE TO MONITOR.
--- NOTE | 2019-04-26 23:20 | NUR ---
MS RN NOTE PATIENT WAS FOUND ON FLOOR. PATIENT WAS UNRESPONSIVE. RAPID RESPONSE ACTIVATED.
[2019-04-27] MEDS ORDERED: LORAZEPAM INJ 2 MG/ML VIAL IV PRN
[2019-04-27 00:01] VITALS: BP 131/72
--- NOTE | 2019-04-27 00:10 | NUR ---
MS RN NOTE PATIENT RETURNED FROM STAT HEAD CT. PATIENT IS BEING MOVED FROM [facility]-2 TO NEW ROOM IN 326-1 D/T BEING CLOSER TO NURSING STATION FOR BETTER MONITORING. ALL PATIENTS BELONGINGS THAT HAVE BEEN DOCUMENTED ON THE BELONGING LIST HAVE BEEN MOVED TO NEW ROOM.
--- NOTE | 2019-04-27 00:15 | NUR ---
MS RN NOTE CALLED MD TO ASK TO UPGRADE THE PATIENT TO TELE, MD DID NOT WANT TO UPGRADE. WILL CONTINUE TO MONITOR.
[2019-04-27] MEDS ORDERED: LEVE500T9 PO (00:45)
[2019-04-27] MEDS ORDERED: DIVA500T2 PO (00:45)
[2019-04-27 04:00] VITALS: BP 114/67
[2019-04-27] MEDS: HYDROCODONE/APAP 5/325MG 1 EACH TABLET PO PRN (05:44)
--- NOTE | 2019-04-27 06:30 | NUR ---
MS RN CLOSING NOTE PATIENT IN BED. A/O 4. TOLERATING ROOM AIR. RESPIRATIONS ARE EVEN AND UNLABORED. NO SIGN OF SOB . NO APPARENT DISTRESS. IV ACCESS MAINTAINED IN LAC #20 PATENT AND SALINE LOCKED. BED IS LOW AND LOCKED, HOB ELEVATED 45 DEGREES, SIDE RAILS UP X2. CALL LIGHT WITHIN REACH. WILL ENDORSE TO NEXT SHIFT.
--- NOTE | 2019-04-27 07:38 | NUR ---
MS RN OPENING NOTES RECEIVED PATIENT IN BED RESTING COMFORTABLY IN MODERATE HIGH BACK REST. A/O X4. IV ACCESS ON LEFT AC #20, SL. PATENT AND INTACT. SAFETY MEASURES IN PLACE, BED IN LOW LOCKED POSITION WITH SIDE RAILS UP X2. CALL LIGHT WITHIN EASY REACH. WILL CONTINUE TO MONITOR.
[2019-04-27 08:00] VITALS: BP 120/66
[2019-04-27] MEDS: NEOMY SULF/BACITRAC ZN/POLY 15 GM TUBE TP SCH (08:37)
[2019-04-27 10:46] LABS: BASOPHILS # (AUTO) 0.1 /CMM (0.0-0.2); BASOPHILS % (AUTO) 1.2 % (0.0-2.0); EOSINOPHILS % (AUTO) 4.4 % (0.0-6.0); HEMATOCRIT 45 % (39-51); HEMOGLOBIN 14.7 g/dL (13.5-17.5); LYMPHOCYTES # (AUTO) 2.2 /CMM (0.8-4.8); LYMPHOCYTES % (AUTO) 34.9 % (20.0-44.0); MEAN CORPUSCULAR HGB CONC 33 g/dl (31.0-36.0); MEAN CORPUSCULAR VOLUME 84 fL (80-96); MONOCYTES # (AUTO) 0.5 /CMM (0.1-1.30); MONOCYTES % (AUTO) 8.4 % (2.0-12.0); NEUTROPHILS # (AUTO) 3.2 /CMM (1.8-8.9); NEUTROPHILS % (AUTO) 51.1 % (43.0-81.0); PLATELET COUNT (AUTO) 183 /CMM (150-450); RED BLOOD CELL COUNT(AUTO) 5.36 MIL/uL (4.5-6.0); WHITE BLOOD COUNT (AUTO) 6.2 K/uL (4.3-11.0)
[2019-04-27 10:55] LABS: CALCIUM, SERUM 8.6 mg/dL (8.5-10.1); CREATININE 0.8 mg/dL (0.6-1.3); POTASSIUM 4.7 mmol/L (3.5-5.1)
[2019-04-27] MEDS: HYDROGEL DRESSING 90 GM TUBE TP SCH (11:42)
[2019-04-27] MEDS ORDERED: ACETAMINOPHEN 650 MG/20.3 ML UDC NG PRN (14:00)
[2019-04-27] MEDS ORDERED: KETOROLAC TROMETHAMINE 10 MG TABLET PO PRN (14:00)
[2019-04-27 16:00] VITALS: BP 123/85
[2019-04-27 16:38] VITALS: BP_SYST 121; BP_SYST 124; BP_SYST 129; BP_DIAS 76; BP_DIAS 81; BP_DIAS 85
--- NOTE | 2019-04-27 19:00 | NUR ---
MS RN CLOSING NOTES PATIENT IN BED RESTING COMFORTABLY IN MODERATE HIGH BACK REST. A/O X4. IV ACCESS ON LEFT AC #20, SL. PATENT AND INTACT. SAFETY MEASURES IN PLACE, BED IN LOW LOCKED POSITION WITH SIDE RAILS UP X2. CALL LIGHT WITHIN EASY REACH. WILL ENDORSED TO HVAC DESIGN MECHANICAL ENGINEER NURSE FOR DIOR.
--- NOTE | 2019-04-27 19:10 | NUR ---
MS RN OPENING NOTES Received patient A/O, x4, asleep on semi-Lacey's position on bed, easily awaken. On RA, no SOB/respiratory distress noted. No complaints of pain/discomfort noted at this time. With peripheral IV line G#20 SL, no s/sx of infiltration noted. Kept on bed clean, dry and comfortable. On fall precautions, call light within easy reach. Will continue to monitor accordingly.
[2019-04-27 20:00] VITALS: BP 128/88
[2019-04-27] MEDS: DIVALPROEX SODIUM 250 MG TABLET.DR PO SCH (20:38)
[2019-04-27] MEDS: risperiDONE 1 MG TABLET PO SCH (20:38)
[2019-04-27] MEDS: BENZTROPINE MESYLATE (1 MG) 1 MG TABLET PO SCH (20:38)
--- NOTE | 2019-04-27 21:30 | NUR ---
MS RN NOTES Seen and examined by Dr. Spencer. Left JENNIFER drain removed by the MD with scanty serosanguinous out put noted. R drain noted with resistance. Per MD, patient needs to be scheduled to OR for JENNIFER drain removal, possible on Wednesday05/01/29. Kept patient on bed comfortably. Call light within easy reach. Addendum: 04/28/19 at 0637 by TOMASA LOPEZ RN WRONG ENTRY FOR THIS PATIENT.
[2019-04-27] MEDS ORDERED: KETOROLAC TROMETHAMINE INJ 30 MG/ML VIAL IM PRN (22:00)
[2019-04-27] MEDS ORDERED: KETOROLAC TROMETHAMINE INJ 30 MG/ML VIAL IM/IV PRN (22:00)
--- NOTE | 2019-04-28 06:33 | NUR ---
MS RN CLOSING NOTES Patient asleep, easily awaken. On O2 inhalation via NC @ 2LPM, no SOB/respiratory distress noted. No new complaints made within the shift. All nursing needs attended, no new unusualities noted. All due meds given as ordered, no ASE noted. R JENNIFER drained, 15ml serosanguineous output noted. Kept on bed clean, dry and comfortable. On fall precautions, call light within easy reach. Endorsed to the next shift. Addendum: 04/28/19 at 0636 by TOMASA LOPEZ RN WRONG ENTRY FOR THIS PATIENT.
--- NOTE | 2019-04-28 06:36 | NUR ---
MS RN CLOSING NOTES Patient asleep, easily awaken. No new complaints made within the shift. All nursing needs attended, no new unusualities noted. All due meds given as ordered, no ASE noted. Kept on bed clean, dry and comfortable. On fall precautions, call light within easy reach. Endorsed to the next shift.
--- NOTE | 2019-04-28 07:49 | NUR ---
MS RN OPENING NOTES RECEIVED PT LAYING IN BED, SLEEPING COMFORTABLY. PT STATED TO "LEAVE ME ALONE, IM STILL SLEEPING." RESPIRATIONS ARE EVEN AND UNLABORED, NOT IN ANY ACUTE DISTRESS NOTED. NO FACIAL GRIMACING OR MOANING NOTED AT THIS TIME. IV SITE TO LAC INTACT, NO INFILTRATION NOTED. DRESSING KEPT CLEAN AND DRY. SAFETY MEASURES ARE IN PLACE. INSTRUCTED PT TO USE CALL LIGHT WHEN ASSISTANCE IS NEEDED, CALL LIGHT IS LEFT WITHIN REACH. WILL MONITOR THROUGHOUT SHIFT FOR CONTINUITY OF CARE.
[2019-04-28 08:00] VITALS: BP 125/79
[2019-04-28] MEDS: BENZTROPINE MESYLATE (1 MG) 1 MG TABLET PO SCH (08:34)
[2019-04-28] MEDS: DIVALPROEX SODIUM 250 MG TABLET.DR PO SCH (08:34)
[2019-04-28] MEDS: HYDROGEL DRESSING 90 GM TUBE TP SCH (08:34)
[2019-04-28] MEDS: risperiDONE 1 MG TABLET PO SCH (08:34)
[2019-04-28] MEDS: NEOMY SULF/BACITRAC ZN/POLY 15 GM TUBE TP SCH (08:35)
--- NOTE | 2019-04-28 08:40 | NUR ---
MS RN NOTES-- PT REFUSED DEPAKOTE. EXPLAINED THE RISKS AND BENEFITS X3, PT STILL NOTED WITH REFUSAL. HONORED PT'S DIGNITY AND THE RIGHTS TO REFUSE. WILL CONTINUE TO MONITOR CLOSELY.
[2019-04-28 09:46] LABS: BASOPHILS # (AUTO) 0.1 /CMM (0.0-0.2); BASOPHILS % (AUTO) 1.5 % (0.0-2.0); EOSINOPHILS % (AUTO) 4.9 % (0.0-6.0); HEMATOCRIT 46 % (39-51); HEMOGLOBIN 14.9 g/dL (13.5-17.5); LYMPHOCYTES # (AUTO) 1.6 /CMM (0.8-4.8); LYMPHOCYTES % (AUTO) 26.4 % (20.0-44.0); MEAN CORPUSCULAR HGB CONC 33 g/dl (31.0-36.0); MEAN CORPUSCULAR VOLUME 84 fL (80-96); MONOCYTES # (AUTO) 0.4 /CMM (0.1-1.30); MONOCYTES % (AUTO) 7.3 % (2.0-12.0); NEUTROPHILS # (AUTO) 3.6 /CMM (1.8-8.9); NEUTROPHILS % (AUTO) 59.9 % (43.0-81.0); PLATELET COUNT (AUTO) 185 /CMM (150-450); RED BLOOD CELL COUNT(AUTO) 5.43 MIL/uL (4.5-6.0)
[2019-04-28 09:47] LABS: CALCIUM, SERUM 8.7 mg/dL (8.5-10.1); CREATININE 0.8 mg/dL (0.6-1.3); POTASSIUM 4.7 mmol/L (3.5-5.1)
[2019-04-28] MEDS ORDERED: BENZTROPINE MESYLATE (1 MG) 1 MG TABLET PO SCH (13:00)
[2019-04-28] MEDS ORDERED: risperiDONE 1 MG TABLET PO SCH (13:00)
--- NOTE | 2019-04-28 13:34 | NUR ---
MS RN NOTES-- PT ABLE TO MAKE NEEDS KNOWN, NEEDS MET AND RENDERED. PT DOES NOT APPEAR TO BE IN ANY APPARENT DISTRESS. WILL CONTINUE TO MONITOR.
[2019-04-28] MEDS ORDERED: RISP1TAB7 PO (15:54)
[2019-04-28] MEDS ORDERED: BENZ1TAB7 PO (15:54)
[2019-04-28 16:00] VITALS: BP 126/78
--- NOTE | 2019-04-28 17:00 | NUR ---
MS NURSE AIDE EVALUATOR NOTE PT DISCHARGED TO [facility] VIA GURNEY BY AMBULANCE. PT IS A/O X4, AFEBRILE. RESPIRATIONS ARE EVEN AND UNLABORED, NOT IN ANY ACUTE DISTRESS NOTED. PUPILS ARE REACTIVE TO LIGHT, BILATERAL HAND DRAWING PRESS OPERATOR ARE STRONG AND EQUAL. PT DENIES ANY PAIN AT THIS TIME, NO C/O SOB, N/V. ABDOMEN IS SOFT AND NONDISTENDED, BOWEL SOUNDS ARE PRESENT IN ALL 4 QUADRANTS UPON AUSCULTATION. DENIES ANY BLADDER DISCOMFORT. PICTURES TAKEN TO BUE AND FOREHEAD, PLACED IN CHART. IV ACCESS REMOVED, APPLIED PRESSURE AND TOLERATED WELL. EXPLAINED DISCHARGE INSTRUCTIONS TO PT WITH VERBAL AND WRITTEN UNDERSTANDING. BEDSIDE ENDORSEMENT GIVEN TO EMT PERSONNEL. CALLED [facility], GAVE REPORT TO SELIN. ALL BELONGINGS SENT WITH PT. PT LEFT IN MEDICALLY STABLE CONDITION.
== END 2019-04-28 17:00 | DRG 882 ==
LOC: TELE 06:45 → MED 04-26 10:29
PROVIDERS: ADMIT Family Medicine; ATTEND Family Medicine
PROC: 0JQ13ZZ Repair Face Subcutaneous Tissue and Fascia, Percutaneous Approach (ICD-10-PCS; principal; 2019-04-25)
DX: F48.8 Other specified nonpsychotic mental disorders (principal); J45.909 Unspecified asthma, uncomplicated; S01.81XA Laceration without foreign body of other part of head, initial encounter; S40.812A Abrasion of left upper arm, initial encounter; Z68.41 Body mass index [BMI] 40.0-44.9, adult; S61.412A Laceration without foreign body of left hand, initial encounter; F25.0 Schizoaffective disorder, bipolar type; F41.9 Anxiety disorder, unspecified; G47.33 Obstructive sleep apnea (adult) (pediatric); Z98.1 Arthrodesis status; Z87.891 Personal history of nicotine dependence; Z86.74 Personal history of sudden cardiac arrest; R56.9 Unspecified convulsions; R23.4 Changes in skin texture; S51.801A Unspecified open wound of right forearm, initial encounter; W19.XXXA Unspecified fall, initial encounter; Y93.9 Activity, unspecified; Y92.009 Unspecified place in unspecified non-institutional (private) residence as the place of occurrence of the external cause; E66.9 Obesity, unspecified; W34.010S Accidental discharge of airgun, sequela
CPT/HCPCS: 36415; 70450-TC; 71045-TC; 72141-TC; 73090-TC; 73130-TC; 80048-TC; 82962-TC; 85025-TC; 87081-TC; 93307-TC; A6248; A6403; G0378; J1885; J3490

== ENCOUNTER 2019-05-02 23:19 | Inpatient (IN) | payer MEDICARE, MEDICAID ==
[~2019-05-02] VITALS: Ht 170.2 cm; Wt 126.1 kg
[~2019-05-02 23:19] MED LIST changes: +ALBUT2 CONTNEB; +BENZ1TAB7 PO; +CANCER MED; -DIVA125T2; -LEVE250T2; +OXYC30TA86 PO; +RISP1TAB7 PO
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
[2019-05-03 00:29] LABS: BASOPHILS % (AUTO) 0.6 % (0.0-2.0); HEMATOCRIT 41 % (39-51); HEMOGLOBIN 13.4 g/dL (13.5-17.5); LYMPHOCYTES # (AUTO) 2.2 /CMM (0.8-4.8); LYMPHOCYTES % (AUTO) 31.1 % (20.0-44.0); MEAN CORPUSCULAR HGB CONC 33 g/dl (31.0-36.0); MEAN CORPUSCULAR VOLUME 83 fL (80-96); MONOCYTES # (AUTO) 0.7 /CMM (0.1-1.30); MONOCYTES % (AUTO) 9.9 % (2.0-12.0); NEUTROPHILS # (AUTO) 3.8 /CMM (1.8-8.9); NEUTROPHILS % (AUTO) 53.4 % (43.0-81.0); PLATELET COUNT (AUTO) 207 /CMM (150-450)
--- NOTE | 2019-05-03 00:32 | NUR ---
IV LINE OBTAINED ON L AC 18G. BLOOD DRAWN AND GIVEN TO RETAIL GREETER AT BEDSIDE
[2019-05-03 00:38] LABS: CALCIUM, SERUM 8.3 mg/dL (8.5-10.1); POTASSIUM 4.1 mmol/L (3.5-5.1)
[2019-05-03 00:44] LABS: ALBUMIN 3.1 g/dL (3.4-5.0); BILIRUBIN,TOTAL 0.1 mg/dL (0.2-1.0); TOTAL PROTEIN, SERUM 7.4 g/dL (6.4-8.2)
[2019-05-03] MEDS ORDERED: HYDROCODONE/APAP 10/325MG 1 EA TABLET ONE (00:54)
--- NOTE | 2019-05-03 00:55 | NUR ---
REPORT GIVEN TO KEVIN NAVAS FOR DIOR.
--- NOTE | 2019-05-03 00:58 | NUR ---
RN OPEN NOTES RECEIVED PATIENT FROM ER VIA JENNIFER. A/O X4. NO SIGNS OF DISTRESS OR DISCOMFORT. BREATHING EVEN AND UNLABORED. IV ACCESS IN LAC, PATENT AND INTACT, NO SIGNS OF REDNESS OR INFILTRATION. ORIENTED PATIENT TO UNIT AND ROOM. BED IN LOW LOCKED POSITION WITH SIDE RAILS X2. CALL LIGHT WITHIN REACH. WILL CONTINUE TO MONITOR.
[2019-05-03 01:00] VITALS: BP 133/60
--- NOTE | 2019-05-03 01:11 | NUR ---
PT TRANSPORTED UNIT ON [facility] WITH EMT AND RN AT BEDSIDE. PT STABLE FOR TRANSPORT. NAD NOTED DURING TRANSPORT. PT TRANSFERED FROM BY RBUFFALO TO BED ON HIS OWN
[2019-05-03 01:30] VITALS: BP 133/60
[2019-05-03] MEDS ORDERED: MAGNESIUM HYDROXIDE 30 ML UDC PO PRN (01:30)
[2019-05-03] MEDS ORDERED: MAG HYDROX/AL HYDROX/SIMETH 30 ML UDC PO PRN (01:30)
[2019-05-03] MEDS ORDERED: ONDANSETRON HCL/PF 4 MG/2 ML VIAL IVP PRN (01:30)
[2019-05-03] MEDS ORDERED: Z GUARD REMEDY 2 OZ OINT TP PRN (01:30)
[2019-05-03] MEDS ORDERED: ACETAMINOPHEN 325 MG TABLET PO PRN (01:30)
[2019-05-03] MEDS ORDERED: HYDROCODONE/APAP 10/325MG 1 EA TABLET PO PRN ×2 (01:30)
[2019-05-03] MEDS ORDERED: HYDROCODONE/APAP 5/325MG 1 EACH TABLET PO PRN (01:30)
[2019-05-03] MEDS: IV NS 0.9% 1,000 ML IV PRN ×2 (01:52→21:09)
--- NOTE | 2019-05-03 07:41 | NUR ---
RN CLOSING NOTES PATIENT RESTING COMFORTABLY IN BED. A/O X4. NO SIGNS OF DISTRESS OR DISCOMFORT. BREATHING EVEN AND UNLABORED. IV ACCESS IN LAC WITH NS INFUSING, PATENT AND INTACT, NO SIGNS OF REDNESS OR INFILTRATION. ALL NEEDS MET. NO SIGNIFICANT CHANGES THROUGH THE NIGHT. BED IN LOW LOCKED POSITION WITH SIDE RAILS X2. CALL LIGHT WITHIN REACH. ENDORSED TO AM SHIFT FOR DIOR.
--- NOTE | 2019-05-03 07:49 | NUR ---
MS RN OPENING NOTES RECEIVED PT LAYING IN BED, RESTING COMFORTABLY. PT IS A/O X4, AFEBRILE. RESPIRATIONS ARE EVEN AND UNLABORED, NOT IN ANY ACUTE DISTRESS NOTED. PT DENIES ANY PAIN AT THIS TIME, NO C/O SOB, N/V AT THIS TIME. SAFETY MEASURES ARE IN PLACE. INSTRUCTED PT TO USE CALL LIGHT WHEN ASSISTANCE IS NEEDED, CALL LIGHT IS LEFT WITHIN REACH. WILL MONITOR THROUGHOUT SHIFT FOR CONTINUITY OF CARE.
[2019-05-03 08:00] VITALS: BP 126/58
[2019-05-03] MEDS ORDERED: IMAT400T7 PO (09:41)
[2019-05-03] MEDS ORDERED: ALPR2TAB2 PO (09:41)
[2019-05-03] MEDS ORDERED: ALPRAZOLAM 1 MG TABLET PO PRN (12:30)
[2019-05-03] MEDS ORDERED: ALBUTEROL FS 2.5 MG/3 ML VIAL.NEB NEB PRN (12:30)
[2019-05-03] MEDS ORDERED: IMATINIB 400 MG PO SCH (13:00)
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
[2019-05-03] MEDS: risperiDONE 1 MG TABLET PO SCH ×2 (13:17→21:03)
[2019-05-03] MEDS: oxyCODONE IR immediate release 5 MG PO SCH ×2 (13:18→16:39)
[2019-05-03 16:00] VITALS: BP 117/62
--- NOTE | 2019-05-03 16:00 | NUR ---
MS RN NOTES-- S/P WOUND DEBRIDEMENT BY YADI MCDANIEL TO LEFT HAND. PT TOLERATED WELL. DRESSING DONE, KEPT CLEAN AND DRY. WILL CONITNUE TO MONITOR.
[2019-05-03] MEDS: HYDROGEL DRESSING 90 GM TUBE TP SCH ×2 (16:37→16:47)
--- NOTE | 2019-05-03 16:47 | NUR ---
MS BROWN NOTES-- ADMINISTERED HYDROGEL 1530 DOSE.
--- NOTE | 2019-05-03 18:24 | NUR ---
MS RN CLOSING NOTES ALL DUE MEDS GIVEN, NEEDS MET AND RENDERED. PT IS A/O X4, AFEBRILE. RESPIRATIONS ARE EVEN AND UNLABORED, NOT IN ANY ACUTE DISTRESS NOTED. PT DENIES ANY PAIN AT THIS TIME, NO C/O OF ANY SOB, N/V. IV ACCESS TO LAC INTACT, NO INFILTRATION NOTED. DRESSING KEPT CLEAN AND DRY. SAFETY MEASURES ARE IN PLACE. REMINDED PT TO USE CALL LIGHT WHEN ASSISTANCE IS NEEDED, CALL LIGHT IS LEFT WITHIN REACH.
--- NOTE | 2019-05-03 19:30 | NUR ---
RN NOTES Received pt. awake on bed, a/ox3, l hand with dressing dry and intact, no pain noted, no SOB, call light within reach, siderailsupx2, continue to monitor
[2019-05-03 20:54] VITALS: BP 134/66
--- NOTE | 2019-05-04 05:17 | NUR ---
RN NOTES Complained of left hand pain- [place] 5/325mg po given as ordered, V/S stable
--- NOTE | 2019-05-04 06:20 | NUR ---
RN NOTES awake, morning care rendered, denies pain, no SOB, call light within reach, siderailsupx2, pt. needs attended
--- NOTE | 2019-05-04 07:41 | NUR ---
MS RN OPENING NOTES RECEIVED PT LAYING IN BED, RESTING COMFORTABLY. PT IS A/O X4, AFEBRILE. RESPIRATIONS ARE EVEN AND UNLABORED, NOT IN ANY ACUTE DISTRESS NOTED. PT DENIES ANY PAIN AT THIS TIME, NO C/O SOB, N/V AT THIS TIME. IV SITE TO LAC INTACT, NO INFILTRATION NOTED. DRESSING KEPT CLEAN AND DRY. SAFETY MEASURES ARE IN PLACE. INSTRUCTED PT TO USE CALL LIGHT WHEN ASSISTANCE IS NEEDED, CALL LIGHT IS LEFT WITHIN REACH. WILL MONITOR THROUGHOUT SHIFT FOR CONTINUITY OF CARE.
[2019-05-04 08:00] VITALS: BP 117/55
[2019-05-04] MEDS: oxyCODONE IR immediate release 5 MG PO SCH ×2 (08:28→12:31)
[2019-05-04] MEDS: risperiDONE 1 MG TABLET PO SCH ×2 (08:28→12:30)
[2019-05-04] MEDS: HYDROGEL DRESSING 90 GM TUBE TP SCH ×2 (08:29→08:32)
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
[2019-05-04 14:34] LABS: BASOPHILS # (AUTO) 0.1 /CMM (0.0-0.2); BASOPHILS % (AUTO) 1.3 % (0.0-2.0); EOSINOPHILS % (AUTO) 5.2 % (0.0-6.0); HEMATOCRIT 40 % (39-51); HEMOGLOBIN 13.3 g/dL (13.5-17.5); LYMPHOCYTES # (AUTO) 1.9 /CMM (0.8-4.8); LYMPHOCYTES % (AUTO) 30.8 % (20.0-44.0); MEAN CORPUSCULAR HGB CONC 33 g/dl (31.0-36.0); MEAN CORPUSCULAR VOLUME 83 fL (80-96); MONOCYTES # (AUTO) 0.4 /CMM (0.1-1.30); MONOCYTES % (AUTO) 7.4 % (2.0-12.0); NEUTROPHILS # (AUTO) 3.3 /CMM (1.8-8.9); NEUTROPHILS % (AUTO) 55.3 % (43.0-81.0); PLATELET COUNT (AUTO) 192 /CMM (150-450); RED BLOOD CELL COUNT(AUTO) 4.87 MIL/uL (4.5-6.0)
[2019-05-04 15:01] LABS: CALCIUM, SERUM 8.5 mg/dL (8.5-10.1); CREATININE 0.8 mg/dL (0.6-1.3); MAGNESIUM 1.7 mg/dL (1.8-2.4); PHOSPHORUS 3.3 mg/dL (2.5-4.9); POTASSIUM 3.9 mmol/L (3.5-5.1)
[2019-05-04 15:10] LABS: THYROID STIMULATING HORMONE 1.924 uIU/mL (0.358-3.74)
--- NOTE | 2019-05-04 16:20 | NUR ---
MS TOLL MECHANIC NOTE PT DISCHARGED TO HOME IN MEDICALLY STABLE CONDITION WITH GODFATHER DIANE VIA TAXI THAT PT HAD CALLED. PT IS A/O X4, AFEBRILE. RESPIRATIONS ARE EVEN AND UNLABORED, NOT IN ANY ACUTE DISTRESS NOTED. PUPILS ARE REACTIVE TO LIGHT, BILATERAL HAND STUDENT ACCOUNTS MANAGER ARE STRONG AND EQUAL. ABDOMEN IS SOFT AND NONDISTENDED, BOWEL SOUNDS ARE PRESENT IN ALL 4 QUADRANTS UPON AUSCULTATION. DENIES ANY BLADDER DISCOMFORT. PT DENIES ANY PAIN, SOB, N/V. PICTURES TAKE TO LEFT HAND AND RAC. PLACED IN CHART. WOUND DRESSING CHANGE DONE TO LEFT HAND. EXPLAINED DISCHARGE PAPERWORK TO PT WITH VERBAL AND WRITTEN UNDERSTANDING. BELONGINGS WERE CHECKED AND PT WAS MISSING 3 INDIVIDUAL RINGS. NOTIFIED CHARGE NURSE, CHECKED SAFE AND NO RINGS WERE FOUND. INFORMED PT THAT WE WILL CALL IF WE FIND THEM, PT AGREED. PT LEFT WITH ALL REMAINING BELONGINGS. ACCOMPANIED BY TO FRANCK VIA WHEELCHAIR WITH GODFATHER DIANE.
== END 2019-05-04 16:30 | disposition home health service (06) | DRG 982 ==
LOC: ER 23:29 → MED 05-03 00:35
PROVIDERS: ADMIT Internal Medicine; ATTEND Internal Medicine
PROC: 0KBD0ZZ Excision of Left Hand Muscle, Open Approach (ICD-10-PCS; principal; 2019-05-03)
DX: S61.412A Laceration without foreign body of left hand, initial encounter (principal); E44.1 Mild protein-calorie malnutrition; Z68.41 Body mass index [BMI] 40.0-44.9, adult; I10 Essential (primary) hypertension; Z85.038 Personal history of other malignant neoplasm of large intestine; F25.9 Schizoaffective disorder, unspecified; G89.4 Chronic pain syndrome; J45.909 Unspecified asthma, uncomplicated; Z87.891 Personal history of nicotine dependence; Z98.1 Arthrodesis status; Z86.74 Personal history of sudden cardiac arrest; R23.4 Changes in skin texture; W18.30XA Fall on same level, unspecified, initial encounter; Y93.9 Activity, unspecified; Y92.009 Unspecified place in unspecified non-institutional (private) residence as the place of occurrence of the external cause; Z79.891 Long term (current) use of opiate analgesic; W34.010S Accidental discharge of airgun, sequela; M54.9 Dorsalgia, unspecified; R73.03 Prediabetes
CPT/HCPCS: 36415; 72131-TC; 73130-TC; 73502; 73564-TC; 80048-TC; 80061-TC; 80076-TC; 83735-TC; 84100-TC; 84443-TC; 85025-TC; 85730-TC; 87081-TC; A6248; G0378; J7030

== ENCOUNTER 2019-05-08 13:20 | Outpatient (CLI) | payer MEDICARE, MEDICAID ==
[~2019-05-08 13:20] MED LIST changes: +ALPR2TAB2 PO; -BENZ1TAB7 PO; -CANCER MED; +IMAT400T7 PO
== END 2019-05-08 23:59 | disposition home or self-care (01) ==
LOC: WOU 13:20
PROVIDERS: ATTEND Surgery
DX: S61.412A Laceration without foreign body of left hand, initial encounter (principal); X58.XXXA Exposure to other specified factors, initial encounter; Y92.89 Other specified places as the place of occurrence of the external cause; R20.2 Paresthesia of skin; E66.9 Obesity, unspecified; Z68.41 Body mass index [BMI] 40.0-44.9, adult
CPT/HCPCS: 11043

== ENCOUNTER 2019-05-08 14:39 | Outpatient (CLI) | payer MEDICARE, MEDICAID ==
[2019-05-08 09:16] VITALS: BP 129/88
== END 2019-05-08 23:59 | disposition home or self-care (01) ==
LOC: MSC 14:39
PROVIDERS: ATTEND Internal Medicine
DX: E11.9 Type 2 diabetes mellitus without complications (principal); Z79.84 Long term (current) use of oral hypoglycemic drugs; E66.01 Morbid (severe) obesity due to excess calories; Z85.038 Personal history of other malignant neoplasm of large intestine; F25.9 Schizoaffective disorder, unspecified; G40.909 Epilepsy, unspecified, not intractable, without status epilepticus; G89.29 Other chronic pain; M54.9 Dorsalgia, unspecified; J45.909 Unspecified asthma, uncomplicated; Z79.899 Other long term (current) drug therapy

== ENCOUNTER 2019-05-15 15:50 | Outpatient (CLI) | payer MEDICARE, MEDICAID | END 2019-05-15 23:59 | disposition home or self-care (01) | LOC: WOU 15:50 | PROVIDERS: ATTEND Surgery | DX: S61.412A Laceration without foreign body of left hand, initial encounter (principal); X58.XXXA Exposure to other specified factors, initial encounter; Y92.89 Other specified places as the place of occurrence of the external cause; R20.2 Paresthesia of skin; E66.9 Obesity, unspecified; Z68.41 Body mass index [BMI] 40.0-44.9, adult | CPT/HCPCS: 11042 ==

== ENCOUNTER 2019-05-22 13:38 | Outpatient (CLI) | payer MEDICARE, MEDICAID | END 2019-05-22 23:59 | disposition home or self-care (01) | LOC: WOU 13:38 | PROVIDERS: ATTEND Surgery | DX: S61.412A Laceration without foreign body of left hand, initial encounter (principal); X58.XXXA Exposure to other specified factors, initial encounter; Y92.89 Other specified places as the place of occurrence of the external cause; R20.2 Paresthesia of skin; E66.9 Obesity, unspecified; Z68.41 Body mass index [BMI] 40.0-44.9, adult | CPT/HCPCS: 11042 ==

== ENCOUNTER 2019-05-22 15:13 | Outpatient (CLI) | payer MEDICARE, MEDICAID ==
[2019-05-22 16:56] LABS: BASOPHILS # (AUTO) 0.1 /CMM (0.0-0.2); BASOPHILS % (AUTO) 0.8 % (0.0-2.0); EOSINOPHILS % (AUTO) 3.8 % (0.0-6.0); HEMATOCRIT 43 % (39-51); HEMOGLOBIN 13.9 g/dL (13.5-17.5); LYMPHOCYTES # (AUTO) 2.1 /CMM (0.8-4.8); LYMPHOCYTES % (AUTO) 28.7 % (20.0-44.0); MEAN CORPUSCULAR HGB CONC 33 g/dl (31.0-36.0); MEAN CORPUSCULAR VOLUME 84 fL (80-96); MONOCYTES # (AUTO) 0.8 /CMM (0.1-1.30); MONOCYTES % (AUTO) 10.2 % (2.0-12.0); NEUTROPHILS # (AUTO) 4.2 /CMM (1.8-8.9); NEUTROPHILS % (AUTO) 56.5 % (43.0-81.0); PLATELET COUNT (AUTO) 197 /CMM (150-450); WHITE BLOOD COUNT (AUTO) 7.5 K/uL (4.3-11.0)
[2019-05-22 17:04] LABS: CALCIUM, SERUM 8.8 mg/dL (8.5-10.1); POTASSIUM 3.9 mmol/L (3.5-5.1)
== END 2019-05-22 23:59 | disposition home or self-care (01) ==
LOC: LAB 15:13
PROVIDERS: ATTEND Surgery
DX: Z01.818 Encounter for other preprocedural examination (principal); S64.02XD Injury of ulnar nerve at wrist and hand level of left arm, subsequent encounter; I51.7 Cardiomegaly; X58.XXXD Exposure to other specified factors, subsequent encounter; W45.8XXD Other foreign body or object entering through skin, subsequent encounter
CPT/HCPCS: 36415; 71045-TC; 80048-TC; 85025-TC; 85730-TC

== ENCOUNTER → 2019-05-23 | Outpatient (CLI) | payer MEDICARE, MEDICAID | END | disposition home or self-care (01) | LOC: MSC 15:00 | PROVIDERS: ATTEND Internal Medicine | DX: E11.9 Type 2 diabetes mellitus without complications (principal); Z79.84 Long term (current) use of oral hypoglycemic drugs; T81.31XD Disruption of external operation (surgical) wound, not elsewhere classified, subsequent encounter; F25.9 Schizoaffective disorder, unspecified; I10 Essential (primary) hypertension; E66.01 Morbid (severe) obesity due to excess calories; G89.29 Other chronic pain; M54.9 Dorsalgia, unspecified; J45.909 Unspecified asthma, uncomplicated; Z79.899 Other long term (current) drug therapy; Z85.038 Personal history of other malignant neoplasm of large intestine ==

== ENCOUNTER 2019-05-29 13:00 | Outpatient (CLI) | payer MEDICARE, MEDICAID | END 2019-05-29 23:59 | disposition home or self-care (01) | LOC: WOU 13:00 | PROVIDERS: ATTEND Surgery | DX: S61.412A Laceration without foreign body of left hand, initial encounter (principal); X58.XXXA Exposure to other specified factors, initial encounter; Y92.89 Other specified places as the place of occurrence of the external cause; R20.2 Paresthesia of skin; E66.9 Obesity, unspecified; Z68.41 Body mass index [BMI] 40.0-44.9, adult | CPT/HCPCS: 12002; J3490 ==

== ENCOUNTER 2019-06-03 21:34 | Emergency (ER) | payer MEDICARE, MEDICAID ==
[~2019-06-03] VITALS: Ht 170.2 cm; Wt 122.5 kg
--- NOTE | 2019-06-03 21:54 | NUR ---
YANY C/O: OPEN STICHES ON L HAND 5 DAYS AGO, SX 05/26/19. PT STATES HE FELL WHILE WALKING AND STICHES CAME OPEN. TO ER BED 2 AWAITING MED EVAL
--- NOTE | 2019-06-03 22:26 | NUR ---
DR HERNÁNDEZ SPEAKING WITH DR SON
--- NOTE | 2019-06-03 22:28 | NUR ---
TECH AT BEDSIDE FOR XRAY
[2019-06-03] MEDS ORDERED: KETOROLAC TROMETHAMINE INJ 30 MG/ML VIAL IM ONE (22:30)
[2019-06-03] MEDS ORDERED: HYDROCODONE/APAP 5/325MG 1 EACH TABLET PO ONE (22:30)
[2019-06-03] MEDS ORDERED: BACI/NEOM/POLY B OINT PKT 1 UDPKT PACKET TP ONE (23:30)
--- NOTE | 2019-06-03 23:44 | NUR ---
Patient discharged to home in stable condition. Written and verbal after care instructions given. Patient verbalizes understanding of instruction.
[2019-06-03 23:45] VITALS: BP 150/102
== END 2019-06-03 23:45 | disposition home or self-care (01) ==
LOC: ER 21:36
DX: S61.012D Laceration without foreign body of left thumb without damage to nail, subsequent encounter (principal); S61.211D Laceration without foreign body of left index finger without damage to nail, subsequent encounter; M25.512 Pain in left shoulder; R56.9 Unspecified convulsions; I10 Essential (primary) hypertension; E11.9 Type 2 diabetes mellitus without complications; F10.10 Alcohol abuse, uncomplicated; F17.200 Nicotine dependence, unspecified, uncomplicated; Y90.9 Presence of alcohol in blood, level not specified; Z85.038 Personal history of other malignant neoplasm of large intestine; Z98.890 Other specified postprocedural states; Z88.8 Allergy status to other drugs, medicaments and biological substances; Z79.899 Other long term (current) drug therapy; X58.XXXD Exposure to other specified factors, subsequent encounter
CPT/HCPCS: 73030-TC; 73130-TC; J1885

== ENCOUNTER 2019-06-05 13:00 | Outpatient (CLI) | payer MEDICARE, MEDICAID ==
[~2019-06-05 13:00] MED LIST changes: +HYDROCODONE/APAP 5/325MG 1 EACH TABLET ONE; +KETOROLAC TROMETHAMINE INJ 30 MG/ML VIAL ONE
== END 2019-06-05 23:59 | disposition home health service (06) ==
LOC: WOU 13:00
PROVIDERS: ATTEND Surgery
DX: S61.412A Laceration without foreign body of left hand, initial encounter (principal); X58.XXXA Exposure to other specified factors, initial encounter; Y92.89 Other specified places as the place of occurrence of the external cause; R20.2 Paresthesia of skin; E66.9 Obesity, unspecified; Z68.41 Body mass index [BMI] 40.0-44.9, adult
CPT/HCPCS: 11042; J1885

== ENCOUNTER 2019-06-09 11:13 | Outpatient (CLI) | payer MEDICARE, MEDICAID ==
[~2019-06-09 11:13] MED LIST changes: -HYDROCODONE/APAP 5/325MG 1 EACH TABLET ONE; -KETOROLAC TROMETHAMINE INJ 30 MG/ML VIAL ONE
== END 2019-06-09 23:59 | disposition home health service (06) ==
LOC: WOU 11:13
PROVIDERS: ATTEND Surgery
DX: T81.31XA Disruption of external operation (surgical) wound, not elsewhere classified, initial encounter (principal); L90.5 Scar conditions and fibrosis of skin; G56.03 Carpal tunnel syndrome, bilateral upper limbs; M79.642 Pain in left hand; E66.01 Morbid (severe) obesity due to excess calories; Z68.41 Body mass index [BMI] 40.0-44.9, adult; Z87.891 Personal history of nicotine dependence; Z91.81 History of falling; R20.2 Paresthesia of skin
CPT/HCPCS: 11042

== ENCOUNTER 2019-06-12 09:13 | Outpatient (CLI) | payer MEDICARE, MEDICAID | END 2019-06-12 23:59 | disposition home health service (06) | LOC: WOU 09:13 | PROVIDERS: ATTEND Surgery | DX: T81.31XA Disruption of external operation (surgical) wound, not elsewhere classified, initial encounter (principal); G56.03 Carpal tunnel syndrome, bilateral upper limbs; L90.5 Scar conditions and fibrosis of skin; E66.9 Obesity, unspecified; Z68.41 Body mass index [BMI] 40.0-44.9, adult; M79.642 Pain in left hand; Z79.899 Other long term (current) drug therapy | CPT/HCPCS: 11042 ==

== ENCOUNTER 2019-06-15 11:34 | Outpatient (CLI) | payer MEDICARE, MEDICAID | END 2019-06-15 23:59 | disposition home health service (06) | LOC: WOU 11:34 | PROVIDERS: ATTEND Surgery | DX: T81.31XA Disruption of external operation (surgical) wound, not elsewhere classified, initial encounter (principal); G56.03 Carpal tunnel syndrome, bilateral upper limbs; E66.9 Obesity, unspecified; Z68.41 Body mass index [BMI] 40.0-44.9, adult; L90.5 Scar conditions and fibrosis of skin; R20.2 Paresthesia of skin; Z91.81 History of falling | CPT/HCPCS: 11042 ==

== ENCOUNTER 2019-06-19 09:00 | Outpatient (CLI) | payer MEDICARE, MEDICAID | END 2019-06-19 23:59 | disposition home health service (06) | LOC: WOU 09:00 | PROVIDERS: ATTEND Surgery | DX: T81.31XA Disruption of external operation (surgical) wound, not elsewhere classified, initial encounter (principal); R20.2 Paresthesia of skin; M79.641 Pain in right hand; R60.0 Localized edema; E66.9 Obesity, unspecified; Z68.41 Body mass index [BMI] 40.0-44.9, adult; Z85.038 Personal history of other malignant neoplasm of large intestine; Z87.891 Personal history of nicotine dependence; Z79.899 Other long term (current) drug therapy | CPT/HCPCS: 11042 ==

== ENCOUNTER 2019-06-20 14:21 | Outpatient (CLI) | payer MEDICARE, MEDICAID ==
[2019-06-20 14:20] VITALS: BP 157/97
== END 2019-06-20 23:59 | disposition home or self-care (01) ==
LOC: MSC 14:21
PROVIDERS: ATTEND Internal Medicine
DX: E11.9 Type 2 diabetes mellitus without complications (principal); Z79.84 Long term (current) use of oral hypoglycemic drugs; T81.31XD Disruption of external operation (surgical) wound, not elsewhere classified, subsequent encounter; I10 Essential (primary) hypertension; E66.01 Morbid (severe) obesity due to excess calories; F25.9 Schizoaffective disorder, unspecified; G89.29 Other chronic pain; M54.9 Dorsalgia, unspecified; J45.909 Unspecified asthma, uncomplicated; Z85.038 Personal history of other malignant neoplasm of large intestine; Z79.899 Other long term (current) drug therapy

== ENCOUNTER 2019-06-21 09:38 | Outpatient (CLI) | payer MEDICARE, MEDICAID | END 2019-06-21 23:59 | disposition home or self-care (01) | LOC: CT 09:38 | PROVIDERS: ATTEND Surgery | DX: S60.351A Superficial foreign body of right thumb, initial encounter (principal); M43.27 Fusion of spine, lumbosacral region; M12.88 Other specific arthropathies, not elsewhere classified, other specified site; M79.671 Pain in right foot; M25.531 Pain in right wrist; R60.0 Localized edema; I70.0 Atherosclerosis of aorta; I10 Essential (primary) hypertension; E11.9 Type 2 diabetes mellitus without complications; X58.XXXA Exposure to other specified factors, initial encounter; Y93.89 Activity, other specified; Y92.89 Other specified places as the place of occurrence of the external cause; Y99.8 Other external cause status | CPT/HCPCS: 72131-TC; 73110; 73130-TC; 73200-TC; 73700-TC ==

== ENCOUNTER 2019-06-21 10:46 | Outpatient (CLI) | payer MEDICARE, MEDICAID ==
[2019-06-21 11:18] LABS: BASOPHILS # (AUTO) 0.1 /CMM (0.0-0.2); EOSINOPHILS % (AUTO) 3.7 % (0.0-6.0); HEMATOCRIT 44 % (39-51); HEMOGLOBIN 14.3 g/dL (13.5-17.5); LYMPHOCYTES # (AUTO) 2.1 /CMM (0.8-4.8); LYMPHOCYTES % (AUTO) 31.4 % (20.0-44.0); MEAN CORPUSCULAR HGB CONC 33 g/dl (31.0-36.0); MEAN CORPUSCULAR VOLUME 83 fL (80-96); MONOCYTES # (AUTO) 0.5 /CMM (0.1-1.30); MONOCYTES % (AUTO) 7.8 % (2.0-12.0); NEUTROPHILS # (AUTO) 3.8 /CMM (1.8-8.9); NEUTROPHILS % (AUTO) 56.1 % (43.0-81.0); PLATELET COUNT (AUTO) 209 /CMM (150-450); RED BLOOD CELL COUNT(AUTO) 5.26 MIL/uL (4.5-6.0); WHITE BLOOD COUNT (AUTO) 6.8 K/uL (4.3-11.0)
[2019-06-21 11:28] LABS: APPEARANCE,URINE CLEAR (CLEAR); BILIRUBIN,URINE NEGATIVE (NEGATIVE); BLOOD, URINE NEGATIVE Ery/uL (NEGATIVE); COLOR,URINE YELLOW (YELLOW); KETONES,URINE NEGATIVE (NEGATIVE); LEUKOCYTE ESTERASE ,URINE NEGATIVE (NEGATIVE); NITRITE, URINE NEGATIVE (NEGATIVE); PROTEIN,URINE NEGATIVE (NEGATIVE); UGLUCOSE NEGATIVE (NEGATIVE); UROBILINOGEN,URINE 0.2 EU/dL (0.2)
[2019-06-21 11:33] LABS: ALBUMIN 3.7 g/dL (3.4-5.0); BILIRUBIN,DIRECT 0.1 mg/dL (0.0-0.2); BILIRUBIN,TOTAL 0.4 mg/dL (0.2-1.0); CREATININE 0.8 mg/dL (0.6-1.3); POTASSIUM 4.2 mmol/L (3.5-5.1); TOTAL PROTEIN, SERUM 8.2 g/dL (6.4-8.2)
== END 2019-06-21 23:59 | disposition home or self-care (01) ==
LOC: LAB 10:46
PROVIDERS: ATTEND Internal Medicine
DX: Z00.00 Encounter for general adult medical examination without abnormal findings (principal); E11.9 Type 2 diabetes mellitus without complications; I10 Essential (primary) hypertension
CPT/HCPCS: 36415; 80048-TC; 80061-TC; 80076-TC; 81000-TC; 82728-TC; 83540-TC; 85025-TC

== ENCOUNTER 2019-06-22 10:29 | Outpatient (CLI) | payer MEDICARE, MEDICAID | END 2019-06-22 23:59 | disposition home health service (06) | LOC: WOU 10:29 | PROVIDERS: ATTEND Surgery | DX: T81.31XA Disruption of external operation (surgical) wound, not elsewhere classified, initial encounter (principal); S61.412D Laceration without foreign body of left hand, subsequent encounter; W45.8XXD Other foreign body or object entering through skin, subsequent encounter; L90.5 Scar conditions and fibrosis of skin; E66.9 Obesity, unspecified; Z68.41 Body mass index [BMI] 40.0-44.9, adult; R20.2 Paresthesia of skin; R29.6 Repeated falls | CPT/HCPCS: 11042 ==

== ENCOUNTER 2019-06-23 10:11 | Outpatient (CLI) | payer MEDICARE, MEDICAID | END 2019-06-23 23:59 | disposition home or self-care (01) | LOC: MRI 10:11 | PROVIDERS: ATTEND Radiology Neuroradiology | DX: S43.022A Posterior subluxation of left humerus, initial encounter (principal); S43.021A Posterior subluxation of right humerus, initial encounter; S46.011A Strain of muscle(s) and tendon(s) of the rotator cuff of right shoulder, initial encounter; M19.012 Primary osteoarthritis, left shoulder; M19.011 Primary osteoarthritis, right shoulder; M89.38 Hypertrophy of bone, other site; M48.02 Spinal stenosis, cervical region; M43.26 Fusion of spine, lumbar region; M25.78 Osteophyte, vertebrae; M51.26 Other intervertebral disc displacement, lumbar region; M25.512 Pain in left shoulder; M75.82 Other shoulder lesions, left shoulder; M65.812 Other synovitis and tenosynovitis, left shoulder; V49.9XXA Car occupant (driver) (passenger) injured in unspecified traffic accident, initial encounter; Y93.89 Activity, other specified; Y92.89 Other specified places as the place of occurrence of the external cause; Y99.8 Other external cause status | CPT/HCPCS: 72141-TC; 72148-TC; 73221-TC ==

== ENCOUNTER 2019-06-26 09:15 | Outpatient (CLI) | payer MEDICARE, MEDICAID | END 2019-06-26 23:59 | disposition home health service (06) | LOC: WOU 09:15 | PROVIDERS: ATTEND Surgery | DX: T81.31XA Disruption of external operation (surgical) wound, not elsewhere classified, initial encounter (principal); R20.2 Paresthesia of skin; M79.641 Pain in right hand; R60.0 Localized edema; E66.9 Obesity, unspecified; Z68.41 Body mass index [BMI] 40.0-44.9, adult; Z85.038 Personal history of other malignant neoplasm of large intestine; Z87.891 Personal history of nicotine dependence; Z79.899 Other long term (current) drug therapy | CPT/HCPCS: 11042 ==

== ENCOUNTER 2019-07-03 08:35 | Outpatient (CLI) | payer MEDICARE, MEDICAID | END 2019-07-03 23:59 | disposition home or self-care (01) | LOC: WOU 08:35 | PROVIDERS: ATTEND Surgery | DX: T81.31XA Disruption of external operation (surgical) wound, not elsewhere classified, initial encounter (principal); G56.03 Carpal tunnel syndrome, bilateral upper limbs; L90.5 Scar conditions and fibrosis of skin; E66.01 Morbid (severe) obesity due to excess calories; Z68.41 Body mass index [BMI] 40.0-44.9, adult; E11.9 Type 2 diabetes mellitus without complications; Z79.84 Long term (current) use of oral hypoglycemic drugs; Z85.038 Personal history of other malignant neoplasm of large intestine; Z87.891 Personal history of nicotine dependence | CPT/HCPCS: 11042; 82962-TC ==

== ENCOUNTER 2019-07-06 13:30 | Outpatient (CLI) | payer MEDICARE, MEDICAID | END 2019-07-06 23:59 | disposition home or self-care (01) | LOC: WOU 13:30 | PROVIDERS: ATTEND Surgery | DX: T81.31XA Disruption of external operation (surgical) wound, not elsewhere classified, initial encounter (principal); R20.2 Paresthesia of skin; E66.9 Obesity, unspecified; Z68.41 Body mass index [BMI] 40.0-44.9, adult; L90.5 Scar conditions and fibrosis of skin; M79.642 Pain in left hand | CPT/HCPCS: 11042 ==

== ENCOUNTER 2019-07-10 08:40 | Outpatient (CLI) | payer MEDICARE, MEDICAID | END 2019-07-10 23:59 | disposition home or self-care (01) | LOC: WOU 08:40 | PROVIDERS: ATTEND Surgery | DX: T81.31XA Disruption of external operation (surgical) wound, not elsewhere classified, initial encounter (principal); G56.01 Carpal tunnel syndrome, right upper limb; E11.40 Type 2 diabetes mellitus with diabetic neuropathy, unspecified; Z79.84 Long term (current) use of oral hypoglycemic drugs; R60.0 Localized edema; M79.641 Pain in right hand; E66.9 Obesity, unspecified; Z68.41 Body mass index [BMI] 40.0-44.9, adult; Z79.899 Other long term (current) drug therapy | CPT/HCPCS: 11042 ==

== ENCOUNTER 2019-07-13 09:00 | Outpatient (CLI) | payer MEDICARE, MEDICAID | END 2019-07-13 23:59 | disposition home or self-care (01) | LOC: WOU 09:00 | PROVIDERS: ATTEND Surgery | DX: T81.31XD Disruption of external operation (surgical) wound, not elsewhere classified, subsequent encounter (principal); G56.01 Carpal tunnel syndrome, right upper limb; M79.642 Pain in left hand; E66.01 Morbid (severe) obesity due to excess calories; Z68.41 Body mass index [BMI] 40.0-44.9, adult; Z85.038 Personal history of other malignant neoplasm of large intestine; Z87.891 Personal history of nicotine dependence; E11.9 Type 2 diabetes mellitus without complications; Z79.84 Long term (current) use of oral hypoglycemic drugs; R20.2 Paresthesia of skin | CPT/HCPCS: G0463 ==

== ENCOUNTER 2019-07-17 09:00 | Outpatient (CLI) | payer MEDICARE, MEDICAID | END 2019-07-17 23:59 | disposition home or self-care (01) | LOC: WOU 09:00 | PROVIDERS: ATTEND Surgery | DX: G56.01 Carpal tunnel syndrome, right upper limb (principal); E11.40 Type 2 diabetes mellitus with diabetic neuropathy, unspecified; Z79.84 Long term (current) use of oral hypoglycemic drugs; R60.0 Localized edema; M79.641 Pain in right hand; E66.9 Obesity, unspecified; Z68.41 Body mass index [BMI] 40.0-44.9, adult | CPT/HCPCS: G0463 ==

== ENCOUNTER 2019-07-19 16:46 | Outpatient (CLI) | payer MEDICARE, MEDICAID | END 2019-07-19 23:59 | disposition home or self-care (01) | LOC: MSC 16:46 | PROVIDERS: ATTEND Internal Medicine | DX: G56.01 Carpal tunnel syndrome, right upper limb (principal); E11.40 Type 2 diabetes mellitus with diabetic neuropathy, unspecified; Z79.84 Long term (current) use of oral hypoglycemic drugs; I10 Essential (primary) hypertension; F25.9 Schizoaffective disorder, unspecified; M50.30 Other cervical disc degeneration, unspecified cervical region; M51.36 Other intervertebral disc degeneration, lumbar region; Z98.1 Arthrodesis status; Z90.49 Acquired absence of other specified parts of digestive tract; Z98.890 Other specified postprocedural states; E66.01 Morbid (severe) obesity due to excess calories; J45.998 Other asthma; Z79.891 Long term (current) use of opiate analgesic; Z79.899 Other long term (current) drug therapy ==

== ENCOUNTER 2019-07-23 03:09 | Emergency (ER) | payer MEDICARE, MEDICAID ==
[~2019-07-23] VITALS: Ht 172.7 cm; Wt 115.2 kg
--- NOTE | 2019-07-23 03:15 | NUR ---
PT BIBSELF C/O R HAND NUMBNESS AND TINGLING. PT STATES HAVING HAND SX ON WEDNESDAY. PT AXO4. RESPIRATIONS EVEN AND UNLABORED. PT PUT ON THE ANIMAL SHELTER MANAGER AND PULSE OX. PENDING EVAL FROM [facility]LE[facility] CREWS.
--- NOTE | 2019-07-23 03:41 | NUR ---
DR. PASCALE DEVI PER KATHLEEN CREWS ORDER.
--- NOTE | 2019-07-23 04:13 | NUR ---
DR. PASCALE DEVI PER KATHLEEN CREWS ORDER.
--- NOTE | 2019-07-23 04:15 | NUR ---
PT STATES FEELING COMFORTABLE WITH FOLLOW-UP APPT ON WEDNESDAY.
--- NOTE | 2019-07-23 04:55 | NUR ---
Patient discharged to home in stable condition. Written and verbal after care instructions given. Patient verbalizes understanding of instruction.Pt ambulatory with a steady gait
[2019-07-23 04:57] VITALS: BP 137/84
== END 2019-07-23 04:57 | disposition home or self-care (01) ==
LOC: ER 03:14
DX: G89.18 Other acute postprocedural pain (principal); R56.9 Unspecified convulsions; I10 Essential (primary) hypertension; E11.9 Type 2 diabetes mellitus without complications; F10.10 Alcohol abuse, uncomplicated; F17.200 Nicotine dependence, unspecified, uncomplicated; Y90.9 Presence of alcohol in blood, level not specified; Z85.038 Personal history of other malignant neoplasm of large intestine; Z98.890 Other specified postprocedural states; Z79.899 Other long term (current) drug therapy; Z88.8 Allergy status to other drugs, medicaments and biological substances

== ENCOUNTER 2019-07-24 09:10 | Outpatient (CLI) | payer MEDICARE, MEDICAID | END 2019-07-24 23:59 | disposition home or self-care (01) | LOC: WOU 09:10 | PROVIDERS: ATTEND Surgery | DX: Z48.811 Encounter for surgical aftercare following surgery on the nervous system (principal); T81.89XD Other complications of procedures, not elsewhere classified, subsequent encounter; E11.40 Type 2 diabetes mellitus with diabetic neuropathy, unspecified; Z79.84 Long term (current) use of oral hypoglycemic drugs; M79.641 Pain in right hand; R60.0 Localized edema; E66.9 Obesity, unspecified; Z68.41 Body mass index [BMI] 40.0-44.9, adult | CPT/HCPCS: G0463 ==

== ENCOUNTER 2019-07-30 01:36 | Emergency (ER) | payer MEDICARE, MEDICAID ==
[~2019-07-30] VITALS: Ht 170.2 cm; Wt 122.5 kg
[2019-07-30 01:36] VITALS: BP 143/70
== END 2019-07-30 03:08 | disposition home or self-care (01) ==
LOC: ER 01:42
DX: G56.01 Carpal tunnel syndrome, right upper limb (principal); I10 Essential (primary) hypertension; E11.9 Type 2 diabetes mellitus without complications; F17.200 Nicotine dependence, unspecified, uncomplicated; Z98.890 Other specified postprocedural states; Z88.8 Allergy status to other drugs, medicaments and biological substances; Z79.899 Other long term (current) drug therapy

== ENCOUNTER 2019-07-31 08:32 | Outpatient (CLI) | payer MEDICARE, MEDICAID | END 2019-07-31 23:59 | disposition home or self-care (01) | LOC: WOU 08:32 | PROVIDERS: ATTEND Surgery | DX: M79.641 Pain in right hand (principal); R60.0 Localized edema; Z98.890 Other specified postprocedural states; E11.40 Type 2 diabetes mellitus with diabetic neuropathy, unspecified; Z79.84 Long term (current) use of oral hypoglycemic drugs; E66.9 Obesity, unspecified; Z68.41 Body mass index [BMI] 40.0-44.9, adult | CPT/HCPCS: G0463 ==

== ENCOUNTER 2019-08-06 20:11 | Emergency (ER) | payer MEDICARE, MEDICAID ==
[~2019-08-06] VITALS: Ht 170.2 cm; Wt 122.5 kg
[2019-08-06 20:18] VITALS: BP 144/87
[2019-08-06] MEDS ORDERED: ACETAMINOPHEN ES 500 MG TABLET ONE (21:18)
[2019-08-06] MEDS ORDERED: TDAP [DIPH/PERTUSSIS/TET] 0.5 ML VIAL IM ONE (21:18)
[2019-08-06] MEDS: ACETAMINOPHEN 325 MG TABLET PO ONE (21:23)
[2019-08-06] MEDS: TDAP [DIPH/PERTUSSIS/TET] 0.5 ML VIAL IM ONE (21:28)
== END 2019-08-06 23:29 | disposition home or self-care (01) ==
LOC: ER 20:12
DX: S61.216A Laceration without foreign body of right little finger without damage to nail, initial encounter (principal); S51.812A Laceration without foreign body of left forearm, initial encounter; R56.9 Unspecified convulsions; I10 Essential (primary) hypertension; E11.9 Type 2 diabetes mellitus without complications; F10.10 Alcohol abuse, uncomplicated; F17.200 Nicotine dependence, unspecified, uncomplicated; Y90.9 Presence of alcohol in blood, level not specified; Z85.038 Personal history of other malignant neoplasm of large intestine; Z88.8 Allergy status to other drugs, medicaments and biological substances; Z79.899 Other long term (current) drug therapy; W01.0XXA Fall on same level from slipping, tripping and stumbling without subsequent striking against object, initial encounter; Y93.89 Activity, other specified; Y92.002 Bathroom of unspecified non-institutional (private) residence as the place of occurrence of the external cause; Y99.8 Other external cause status
CPT/HCPCS: 73090-TC; 73130-TC; 90715

== ENCOUNTER 2019-08-07 08:54 | Outpatient (CLI) | payer MEDICARE, MEDICAID | END 2019-08-07 23:59 | disposition home or self-care (01) | LOC: WOU 08:54 | PROVIDERS: ATTEND Surgery | DX: S61.411D Laceration without foreign body of right hand, subsequent encounter (principal); S51.812D Laceration without foreign body of left forearm, subsequent encounter; W18.30XD Fall on same level, unspecified, subsequent encounter; E11.40 Type 2 diabetes mellitus with diabetic neuropathy, unspecified; Z79.84 Long term (current) use of oral hypoglycemic drugs; E66.9 Obesity, unspecified; Z68.41 Body mass index [BMI] 40.0-44.9, adult; M79.641 Pain in right hand; R60.0 Localized edema; Z98.890 Other specified postprocedural states | CPT/HCPCS: G0463 ==

== ENCOUNTER → 2019-08-08 | Outpatient (CLI) | payer MEDICARE, MEDICAID | END | disposition home or self-care (01) | LOC: MSC 12:51 | PROVIDERS: ATTEND Anesthesiology | DX: M54.16 Radiculopathy, lumbar region (principal); M62.830 Muscle spasm of back; M54.12 Radiculopathy, cervical region; M25.511 Pain in right shoulder; M25.512 Pain in left shoulder; G89.3 Neoplasm related pain (acute) (chronic); C80.1 Malignant (primary) neoplasm, unspecified; Z79.891 Long term (current) use of opiate analgesic ==

== ENCOUNTER 2019-08-14 08:40 | Outpatient (CLI) | payer MEDICARE, MEDICAID | END 2019-08-14 23:59 | disposition home or self-care (01) | LOC: WOU 08:40 | PROVIDERS: ATTEND Surgery | DX: S61.411D Laceration without foreign body of right hand, subsequent encounter (principal); S51.812D Laceration without foreign body of left forearm, subsequent encounter; W18.30XD Fall on same level, unspecified, subsequent encounter; E11.40 Type 2 diabetes mellitus with diabetic neuropathy, unspecified; Z79.84 Long term (current) use of oral hypoglycemic drugs; E66.9 Obesity, unspecified; Z68.41 Body mass index [BMI] 40.0-44.9, adult; Z87.891 Personal history of nicotine dependence; Z79.899 Other long term (current) drug therapy; Z98.890 Other specified postprocedural states | CPT/HCPCS: G0463 ==

== ENCOUNTER 2019-08-17 19:37 | Emergency (ER) | payer MEDICARE, MEDICAID ==
[~2019-08-17] VITALS: Ht 170.2 cm; Wt 122.9 kg
[2019-08-17 19:37] VITALS: BP 142/81
[2019-08-17] MEDS ORDERED: ALBUTEROL FS 2.5 MG/3 ML VIAL.NEB ONE (23:18)
[2019-08-17] MEDS ORDERED: IPRATROPIUM NEB FS 0.5 MG/2.5 ML AMPUL.NEB ONE (23:18)
[2019-08-17] MEDS ORDERED: IPRATROPIUM NEB FS 0.5 MG/2.5 ML AMPUL.NEB NEB ONE (23:30)
[2019-08-17] MEDS ORDERED: ALBUTEROL FS 2.5 MG/3 ML VIAL.NEB NEB ONE (23:30)
--- NOTE | 2019-08-18 00:06 | NUR ---
Patient discharged to home in stable condition. Written and verbal after care instructions given. Patient verbalizes understanding of instruction.
== END 2019-08-18 00:26 | disposition home or self-care (01) ==
LOC: ER 19:39
DX: J06.9 Acute upper respiratory infection, unspecified (principal); J45.901 Unspecified asthma with (acute) exacerbation; E66.01 Morbid (severe) obesity due to excess calories; E11.9 Type 2 diabetes mellitus without complications; R20.2 Paresthesia of skin; R56.9 Unspecified convulsions; I10 Essential (primary) hypertension; F10.10 Alcohol abuse, uncomplicated; F17.200 Nicotine dependence, unspecified, uncomplicated; Y90.9 Presence of alcohol in blood, level not specified; Z85.038 Personal history of other malignant neoplasm of large intestine; Z68.41 Body mass index [BMI] 40.0-44.9, adult; Z88.8 Allergy status to other drugs, medicaments and biological substances; Z79.899 Other long term (current) drug therapy; Z98.890 Other specified postprocedural states
CPT/HCPCS: 82962-TC

== ENCOUNTER 2019-09-18 08:25 | Outpatient (CLI) | payer MEDICARE, MEDICAID | END 2019-09-18 23:59 | disposition home or self-care (01) | LOC: WOU 08:25 | PROVIDERS: ATTEND Surgery | DX: S61.411D Laceration without foreign body of right hand, subsequent encounter (principal); X58.XXXD Exposure to other specified factors, subsequent encounter; E11.40 Type 2 diabetes mellitus with diabetic neuropathy, unspecified; Z79.84 Long term (current) use of oral hypoglycemic drugs; M79.641 Pain in right hand; E66.9 Obesity, unspecified | CPT/HCPCS: G0463 ==

== ENCOUNTER → 2019-09-26 | Outpatient (CLI) | payer MEDICARE, MEDICAID | END | disposition home or self-care (01) | LOC: MSC 10:15 | PROVIDERS: ATTEND Anesthesiology | DX: M54.16 Radiculopathy, lumbar region (principal); M54.12 Radiculopathy, cervical region; M62.830 Muscle spasm of back; M25.511 Pain in right shoulder; M25.512 Pain in left shoulder; G89.3 Neoplasm related pain (acute) (chronic); C80.1 Malignant (primary) neoplasm, unspecified; C18.9 Malignant neoplasm of colon, unspecified; Z73.6 Limitation of activities due to disability; Z87.891 Personal history of nicotine dependence; Z79.891 Long term (current) use of opiate analgesic ==

== ENCOUNTER 2019-10-24 14:21 | Outpatient (CLI) | payer MEDICARE, MEDICAID | END 2019-10-24 23:59 | disposition home or self-care (01) | LOC: MSC 14:21 | PROVIDERS: ATTEND Anesthesiology | DX: M54.16 Radiculopathy, lumbar region (principal); M62.830 Muscle spasm of back; M54.12 Radiculopathy, cervical region; M25.512 Pain in left shoulder; M25.511 Pain in right shoulder; G89.3 Neoplasm related pain (acute) (chronic); C80.1 Malignant (primary) neoplasm, unspecified; Z79.891 Long term (current) use of opiate analgesic ==

== ENCOUNTER 2019-11-23 16:27 | Emergency (ER) | payer MEDICARE, OTHER ==
[~2019-11-23] VITALS: Ht 172.7 cm; Wt 122.9 kg
[2019-11-23 17:00] VITALS: BP 148/99
--- NOTE | 2019-11-23 17:48 | NUR ---
Patient discharged to home in stable condition. Written and verbal after care instructions given. Patient verbalizes understanding of instruction.
== END 2019-11-23 17:49 | disposition home or self-care (01) ==
LOC: ER 16:34
DX: J06.9 Acute upper respiratory infection, unspecified (principal); R56.9 Unspecified convulsions; I10 Essential (primary) hypertension; E11.9 Type 2 diabetes mellitus without complications; Z85.038 Personal history of other malignant neoplasm of large intestine; Z98.890 Other specified postprocedural states; Z91.048 Other nonmedicinal substance allergy status; Z88.8 Allergy status to other drugs, medicaments and biological substances; Z79.899 Other long term (current) drug therapy
CPT/HCPCS: 71045-TC

== ENCOUNTER → 2019-12-05 | Outpatient (CLI) | payer MEDICARE, OTHER | END | disposition home or self-care (01) | LOC: MSC 09:35 | PROVIDERS: ATTEND Anesthesiology | DX: M54.16 Radiculopathy, lumbar region (principal); M62.830 Muscle spasm of back; M54.12 Radiculopathy, cervical region; M25.512 Pain in left shoulder; M25.511 Pain in right shoulder; G89.3 Neoplasm related pain (acute) (chronic); C18.9 Malignant neoplasm of colon, unspecified; Z90.49 Acquired absence of other specified parts of digestive tract; Z84.1 Family history of disorders of kidney and ureter; Z79.891 Long term (current) use of opiate analgesic ==

== ENCOUNTER 2019-12-22 16:18 | Emergency (ER) | payer MEDICARE, OTHER ==
[~2019-12-22] VITALS: Ht 170.2 cm; Wt 115.7 kg
[2019-12-22] MEDS ORDERED: IV NS 0.9% 1,000 ML BAG IV ONE (17:00)
--- NOTE | 2019-12-22 17:33 | NUR ---
FEELING WEAK AND LIGHT HEADED X TODAY. BG READING HIGH INSIDE TRUCKER. PT AAOX4, VSS. RR EVEN & UNLABORED. DENIES CP, SOB, N/V/D, WEAKNESS @ THIS TIME. PT SEEN & EVAL'D BY DR. CASTRO. WILL CONT TO MONITOR.
[2019-12-22 17:59] LABS: BASOPHILS % (AUTO) 0.3 % (0.0-2.0); EOSINOPHILS % (AUTO) 2.7 % (0.0-6.0); HEMATOCRIT 43 % (39-51); HEMOGLOBIN 14.1 g/dL (13.5-17.5); LYMPHOCYTES # (AUTO) 2.5 /CMM (0.8-4.8); LYMPHOCYTES % (AUTO) 32.9 % (20.0-44.0); MEAN CORPUSCULAR HGB CONC 33 g/dl (31.0-36.0); MEAN CORPUSCULAR VOLUME 85 fL (80-96); MONOCYTES # (AUTO) 0.6 /CMM (0.1-1.30); MONOCYTES % (AUTO) 8.3 % (2.0-12.0); NEUTROPHILS # (AUTO) 4.3 /CMM (1.8-8.9); NEUTROPHILS % (AUTO) 55.8 % (43.0-81.0); PLATELET COUNT (AUTO) 161 /CMM (150-450); RED BLOOD CELL COUNT(AUTO) 5.13 MIL/uL (4.5-6.0); WHITE BLOOD COUNT (AUTO) 7.6 K/uL (4.3-11.0)
[2019-12-22 18:05] LABS: CALCIUM, SERUM 8.7 mg/dL (8.5-10.1); CREATININE 0.8 mg/dL (0.6-1.3)
[2019-12-22 18:11] LABS: ALBUMIN 3.6 g/dL (3.4-5.0); BILIRUBIN,DIRECT 0.1 mg/dL (0.0-0.2); BILIRUBIN,TOTAL 0.2 mg/dL (0.2-1.0); TOTAL PROTEIN, SERUM 7.7 g/dL (6.4-8.2)
[2019-12-22 19:24] VITALS: BP 142/82
--- NOTE | 2019-12-22 19:27 | NUR ---
Patient discharged to home in stable condition. Written and verbal after care instructions given. Patient verbalizes understanding of instruction. IV removed. Catheter intact and site benign. Pressure and 4x4 applied to site. No bleeding noted.
== END 2019-12-22 19:25 | disposition home or self-care (01) ==
LOC: ER 16:26
DX: R42 Dizziness and giddiness (principal); I10 Essential (primary) hypertension; E11.9 Type 2 diabetes mellitus without complications; F17.200 Nicotine dependence, unspecified, uncomplicated; Z98.890 Other specified postprocedural states; Z88.8 Allergy status to other drugs, medicaments and biological substances; Z79.899 Other long term (current) drug therapy
CPT/HCPCS: 36415; 80048; 80076; 83690; 85025; 96360; 99283; J7030

== ENCOUNTER 2020-01-02 19:50 | Emergency (ER) | payer MEDICARE, OTHER ==
[~2020-01-02] VITALS: Ht 170.2 cm; Wt 113.4 kg
[2020-01-02 20:08] VITALS: BP 159/83
[2020-01-02] MEDS ORDERED: AZITHROMYCIN 250 MG TABLET ONE (20:48)
[2020-01-02] MEDS ORDERED: CEFTRIAXONE 500 MG VIAL ONE (20:48)
[2020-01-02] MEDS ORDERED: LIDOCAINE /MPF 1% VIAL 5 ML VIAL ONE (20:49)
--- NOTE | 2020-01-02 20:56 | NUR ---
Patient discharged to home in stable condition. Written and verbal after care instructions given. Patient verbalizes understanding of instruction.
[2020-01-02] MEDS ORDERED: CEFTRIAXONE 500 MG VIAL IM ONE (21:00)
[2020-01-02] MEDS ORDERED: AZITHROMYCIN 250 MG TABLET PO ONE (21:00)
== END 2020-01-02 20:57 | disposition home or self-care (01) ==
LOC: ER 19:55
DX: Z20.2 Contact with and (suspected) exposure to infections with a predominantly sexual mode of transmission (principal); F41.9 Anxiety disorder, unspecified; F17.200 Nicotine dependence, unspecified, uncomplicated; J45.909 Unspecified asthma, uncomplicated; I10 Essential (primary) hypertension; E11.9 Type 2 diabetes mellitus without complications; Z98.890 Other specified postprocedural states; Z88.8 Allergy status to other drugs, medicaments and biological substances; Z79.899 Other long term (current) drug therapy
CPT/HCPCS: 87491; 87591; 96372; 99283; J0696; J3490

== ENCOUNTER 2020-05-18 02:49 | Emergency (ER) | payer MEDICARE, MEDICAID ==
[~2020-05-18] VITALS: Ht 170.2 cm; Wt 115.7 kg
[2020-05-18 02:50] VITALS: BP 135/91
== END 2020-05-18 03:16 | disposition home or self-care (01) ==
LOC: ER 02:49
DX: R20.2 Paresthesia of skin (principal); I10 Essential (primary) hypertension; F17.200 Nicotine dependence, unspecified, uncomplicated; Z98.890 Other specified postprocedural states; Z85.038 Personal history of other malignant neoplasm of large intestine; Z88.8 Allergy status to other drugs, medicaments and biological substances; Z79.899 Other long term (current) drug therapy

== ENCOUNTER 2020-09-12 01:47 | Emergency (ER) | payer MEDICARE, OTHER ==
[~2020-09-12] VITALS: Ht 170.2 cm; Wt 117.9 kg
[2020-09-12 02:00] VITALS: BP 130/90
== END 2020-09-12 02:55 | disposition home or self-care (01) ==
LOC: ER 02:15
DX: R05 Cough (principal); I10 Essential (primary) hypertension; E11.9 Type 2 diabetes mellitus without complications; F17.200 Nicotine dependence, unspecified, uncomplicated; Z85.038 Personal history of other malignant neoplasm of large intestine; Z98.890 Other specified postprocedural states; Z88.8 Allergy status to other drugs, medicaments and biological substances; Z60.2 Problems related to living alone; Z79.899 Other long term (current) drug therapy
CPT/HCPCS: 71045-TC

== ENCOUNTER 2020-09-19 13:15 | Outpatient (CLI) | payer MEDICARE, OTHER ==
[2020-09-19 15:06] LABS: BASOPHILS # (AUTO) 0.1 /CMM (0.0-0.2); BASOPHILS % (AUTO) 0.8 % (0.0-2.0); EOSINOPHILS % (AUTO) 1.1 % (0.0-6.0); HEMATOCRIT 44 % (39-51); HEMOGLOBIN 14.2 g/dL (13.5-17.5); LYMPHOCYTES # (AUTO) 1.6 /CMM (0.8-4.8); LYMPHOCYTES % (AUTO) 24.4 % (20.0-44.0); MEAN CORPUSCULAR HGB CONC 32 g/dl (31.0-36.0); MEAN CORPUSCULAR VOLUME 84 fL (80-96); MONOCYTES # (AUTO) 0.6 /CMM (0.1-1.30); MONOCYTES % (AUTO) 8.4 % (2.0-12.0); NEUTROPHILS # (AUTO) 4.3 /CMM (1.8-8.9); NEUTROPHILS % (AUTO) 65.3 % (43.0-81.0); PLATELET COUNT (AUTO) 268 /CMM (150-450); WHITE BLOOD COUNT (AUTO) 6.6 K/uL (4.3-11.0)
[2020-09-19 15:36] LABS: CALCIUM, SERUM 9.1 mg/dL (8.5-10.1); POTASSIUM 3.8 mmol/L (3.5-5.1)
[2020-09-19 15:37] LABS: ALBUMIN 3.4 g/dL (3.4-5.0); BILIRUBIN,TOTAL 0.3 mg/dL (0.2-1.0); CREATININE 1.1 mg/dL (0.6-1.3); TOTAL PROTEIN, SERUM 8.1 g/dL (6.4-8.2)
== END 2020-09-19 23:59 | disposition home or self-care (01) ==
LOC: WOU 13:15
PROVIDERS: ATTEND Surgery
DX: G56.03 Carpal tunnel syndrome, bilateral upper limbs (principal); M79.672 Pain in left foot; M79.671 Pain in right foot; E11.9 Type 2 diabetes mellitus without complications; Z79.84 Long term (current) use of oral hypoglycemic drugs; E66.9 Obesity, unspecified; Z68.41 Body mass index [BMI] 40.0-44.9, adult
CPT/HCPCS: 36415; 80053; 82962; 83036; 85025; G0463

== ENCOUNTER 2020-10-03 15:00 | Outpatient (CLI) | payer MEDICARE, OTHER | END 2020-10-03 23:59 | disposition home or self-care (01) | LOC: WOU 15:00 | PROVIDERS: ATTEND Surgery | DX: G56.03 Carpal tunnel syndrome, bilateral upper limbs (principal); M79.642 Pain in left hand; M79.641 Pain in right hand; G89.29 Other chronic pain; E66.9 Obesity, unspecified; Z68.41 Body mass index [BMI] 40.0-44.9, adult; R73.09 Other abnormal glucose | CPT/HCPCS: G0463 ==

== ENCOUNTER 2021-07-13 21:55 | Emergency (ER) | payer MEDICARE, OTHER ==
[~2021-07-13] VITALS: Ht 170.2 cm; Wt 136.1 kg
--- NOTE | 2021-07-13 22:06 | NUR ---
PT BIBRA 839 FROM [facility] C/O LOWER ABD PAIN X3 DAYS. +NOTED SMALL AMOUNT OF BLOOD IN URINE. PLACED IN BED 9 ON MONITOR AND PULSE OX. URINE SAMPLE COLLECTED, SENT TO LAB.
[2021-07-13] MEDS ORDERED: MORPHINE SULFATE INJ 2 MG/ML DISP.SYRIN IV ONE (22:30)
[2021-07-13] MEDS ORDERED: KETOROLAC TROMETHAMINE INJ 30 MG/ML VIAL IV ONE (22:30)
[2021-07-13] MEDS ORDERED: ONDANSETRON HCL/PF 4 MG/2 ML VIAL IVP ONE (22:30)
[2021-07-13] MEDS ORDERED: IV NS 0.9% 1,000 ML BAG IV ONE (22:30)
[2021-07-13] MEDS ORDERED: ONDANSETRON HCL/PF 4 MG/2 ML VIAL ONE (22:33)
[2021-07-13] MEDS ORDERED: KETOROLAC TROMETHAMINE 15 MG/ML VIAL ONE (22:33)
[2021-07-13] MEDS ORDERED: MORPHINE SULFATE INJ 4 MG/ML DISP.SYRIN ONE (22:33)
[2021-07-13 22:51] LABS: BILIRUBIN,URINE NEGATIVE (NEGATIVE); COLOR,URINE YELLOW (YELLOW); LEUKOCYTE ESTERASE ,URINE LARGE (NEGATIVE); NITRITE, URINE NEGATIVE (NEGATIVE); PROTEIN,URINE 100 mg/dl (NEGATIVE); UGLUCOSE NEGATIVE (NEGATIVE)
--- NOTE | 2021-07-13 22:57 | NUR ---
BROUGHT TO CT AND BACK
[2021-07-13 22:59] LABS: BASOPHILS # (AUTO) 0.1 K/uL (0.0-0.2); BASOPHILS % (AUTO) 0.9 % (0.0-2.0); EOSINOPHILS % (AUTO) 1.1 % (0.0-6.0); HEMATOCRIT 39 % (39-51); HEMOGLOBIN 13.2 g/dL (13.5-17.5); LYMPHOCYTES # (AUTO) 1.5 K/uL (0.8-4.8); LYMPHOCYTES % (AUTO) 15.9 % (20.0-44.0); MEAN CORPUSCULAR HGB CONC 34 g/dl (31.0-36.0); MEAN CORPUSCULAR VOLUME 86 fL (80-96); MONOCYTES # (AUTO) 1.1 K/uL (0.1-1.30); MONOCYTES % (AUTO) 11.7 % (2.0-12.0); NEUTROPHILS # (AUTO) 6.6 K/uL (1.8-8.9); NEUTROPHILS % (AUTO) 70.4 % (43.0-81.0); PLATELET COUNT (AUTO) 192 K/uL (150-450); RED BLOOD CELL COUNT(AUTO) 4.57 MIL/uL (4.5-6.0); WHITE BLOOD COUNT (AUTO) 9.3 K/uL (4.3-11.0)
[2021-07-13 23:28] LABS: CALCIUM, SERUM 8.5 mg/dL (8.5-10.1); POTASSIUM 3.8 mmol/L (3.5-5.1)
[2021-07-13 23:34] LABS: ALBUMIN 2.9 g/dL (3.4-5.0); BILIRUBIN,TOTAL 0.5 mg/dL (0.2-1.0); TOTAL PROTEIN, SERUM 8.1 g/dL (6.4-8.2)
[2021-07-13 23:51] LABS: BILIRUBIN,DIRECT 0.2 mg/dL (0.0-0.2)
[2021-07-14] MEDS ORDERED: CEPH500C2 PO (00:14)
--- NOTE | 2021-07-14 00:21 | NUR ---
IV removed. Catheter intact and site benign. Pressure and 4x4 applied to site. No bleeding noted.
--- NOTE | 2021-07-14 00:33 | NUR ---
Patient discharged to home in stable condition. Written and verbal after care instructions given. Patient verbalizes understanding of instruction.
[2021-07-14 00:37] VITALS: BP 139/76
[2021-07-14 01:17] LABS: RBC,URINE TOO NUMEROUS TO COUN /HPF (0-2)
[2021-07-14 01:18] LABS: BACTERIA,URINE Many /HPF (None Seen); SQUAMOUS EPITHELIAL CELL,UR Moderate /HPF (None Seen); WBC,URINE TOO NUMEROUS TO COUN /HPF (0-3)
== END 2021-07-14 00:38 | disposition home or self-care (01) ==
LOC: ER 21:57
DX: N39.0 Urinary tract infection, site not specified (principal); E66.01 Morbid (severe) obesity due to excess calories; Z68.42 Body mass index [BMI] 45.0-49.9, adult; I10 Essential (primary) hypertension; F17.200 Nicotine dependence, unspecified, uncomplicated; Z98.890 Other specified postprocedural states; Z88.8 Allergy status to other drugs, medicaments and biological substances; Z60.2 Problems related to living alone; Z79.899 Other long term (current) drug therapy
CPT/HCPCS: 36415; 74176; 80048; 80076; 81001; 83690; 85025; 87077; 87086; 87186; 96361; 96374; 96375; 99284; J1885; J2270; J2405; J7030

== ENCOUNTER 2023-08-13 00:39 | Emergency (ER) | payer MEDICARE, OTHER ==
[~2023-08-13] VITALS: Ht 170.2 cm; Wt 127.0 kg
[~2023-08-13 00:39] MED LIST changes: +CEPH500C2 PO
[2023-08-13 01:49] VITALS: TEMP 98.1
[2023-08-13] MEDS ORDERED: IBUPROFEN 400 MG TABLET ONE (01:56)
[2023-08-13] MEDS ORDERED: IBUPROFEN 400 MG TABLET PO ONE (02:00)
[2023-08-13 05:44] VITALS: BP 149/78; O2SAT 96
== END 2023-08-13 05:45 | disposition home or self-care (01) ==
LOC: ER 00:46
DX: S93.402A Sprain of unspecified ligament of left ankle, initial encounter (principal); S93.602A Unspecified sprain of left foot, initial encounter; I10 Essential (primary) hypertension; Z88.8 Allergy status to other drugs, medicaments and biological substances; X50.1XXA Overexertion from prolonged static or awkward postures, initial encounter; Y93.89 Activity, other specified; Y92.89 Other specified places as the place of occurrence of the external cause; Y99.8 Other external cause status
CPT/HCPCS: 73610-TC; 73630-TC

== ENCOUNTER 2024-03-16 15:11 | Inpatient (IN) | payer OTHER, MEDICARE ==
[~2024-03-16] VITALS: Ht 170.2 cm; Wt 137.4 kg
--- NOTE | 2024-03-16 15:28 | NUR ---
HARLEEN [id number] From [facility] escorted by Sheriff [place] 850 "CP while in court/sharp/Non-radiating EKG NSR [id number]"
[2024-03-16] MEDS: IV NS 0.9% 500 ML BAG IV ONE (15:30)
--- NOTE | 2024-03-16 15:55 | NUR ---
patient resting comfortably , no signs and symptoms of distress. stable vital signs
[2024-03-16 15:56] LABS: BASOPHILS # (AUTO) 0.1 K/uL (0.0-0.2); BASOPHILS % (AUTO) 0.9 % (0.0-2.0); EOSINOPHILS # (AUTO) 0.6 K/uL (0.0-0.7); EOSINOPHILS % (AUTO) 7.3 % (0.0-6.0); HEMATOCRIT 43 % (39-51); HEMOGLOBIN 13.7 g/dL (13.5-17.5); LYMPHOCYTES # (AUTO) 1.8 K/uL (0.8-4.8); LYMPHOCYTES % (AUTO) 21.3 % (20.0-44.0); MEAN CORPUSCULAR HEMOGLOBIN 27 PG (26.0-33.0); MEAN CORPUSCULAR HGB CONC 32 g/dl (31.0-36.0); MEAN CORPUSCULAR VOLUME 85 fL (80-96); MONOCYTES # (AUTO) 0.6 K/uL (0.1-1.30); MONOCYTES % (AUTO) 7.4 % (2.0-12.0); NEUTROPHILS # (AUTO) 5.4 K/uL (1.8-8.9); NEUTROPHILS % (AUTO) 63.1 % (43.0-81.0); PLATELET COUNT (AUTO) 179 K/uL (150-450); RED BLOOD CELL COUNT(AUTO) 5.01 MIL/uL (4.5-6.0); WHITE BLOOD COUNT (AUTO) 8.5 K/uL (4.3-11.0)
[2024-03-16 16:05] LABS: CALCIUM, SERUM 8.5 mg/dL (8.5-10.1); CARBON DIOXIDE 28 mmol/L (21-32); CHLORIDE 107 mmol/L (98-107); CREATININE 0.8 mg/dL (0.6-1.3); GLUCOSE 125 mg/dL (74-106); UREA NITROGEN, BLOOD 20 mg/dL (7-18)
[2024-03-16 16:06] LABS: POTASSIUM 3.8 mmol/L (3.5-5.1); SODIUM SERUM 141 mmol/L (136-145)
[2024-03-16 16:11] LABS: INR 1.04 (0.91-1.10); PARTIAL THROMBOPLASTIN TIME 23.2 SEC (24.3-34.3); PROTHROMBIN TIME 10.7 SECS (9.2-11.1)
[2024-03-16 16:18] LABS: NT-PRO BNP 14 pg/mL (0-125)
[2024-03-16] MEDS ORDERED: IV NS 0.9% 250 ML IV ONE (16:45)
[2024-03-16] MEDS ORDERED: CT SWABBABLE VALVE TRANS SET 1 EA INFUS.SET MC ONE (16:45)
[2024-03-16] MEDS ORDERED: IOHEXOL-350 100 ML VIAL IV ONE ×2 (16:45→17:18)
--- NOTE | 2024-03-16 16:46 | NUR ---
MOVE SHEET SUBMITTED.
--- NOTE | 2024-03-16 17:41 | NUR ---
waiting for regal to call back per admitting
--- NOTE | 2024-03-16 18:01 | NUR ---
patient fell in the CT scan room while being transferred back to his gurandover. sustained laceration on his left elbow.md pickard as well as vinay fuel system maintenance supervisor.
--- NOTE | 2024-03-16 19:15 | NUR ---
to 215pm
[2024-03-16] MEDS ORDERED: ONDANSETRON HCL/PF 4 MG/2 ML VIAL IVP PRN (19:30)
[2024-03-16] MEDS ORDERED: MAG HYDROX/AL HYDROX/SIMETH 30 ML UDC PO PRN (19:30)
[2024-03-16] MEDS ORDERED: Z GUARD REMEDY 4 OZ OINT TP PRN (19:30)
[2024-03-16] MEDS ORDERED: ACETAMINOPHEN 325 MG TABLET PO PRN (19:30)
[2024-03-16] MEDS ORDERED: MAGNESIUM HYDROXIDE 30 ML UDC PO PRN (19:30)
[2024-03-16] MEDS ORDERED: DEXTROSE 50%-WATER 50 ML DISP.SYRIN IV PRN (20:00)
--- NOTE | 2024-03-16 21:01 | NUR ---
REPORT GIVEN TO KEVIN POWELL
[2024-03-16 21:30] VITALS: BP 122/74; TEMP 98.1; O2SAT 98
--- NOTE | 2024-03-16 21:38 | NUR ---
LATHE MECHANICCLOTH FEEDER NOTE PATIENT CAME IN ON GURNEY ACCOMPANIED BY COURT HOUSE GUARDS. PATIENT IS AWAKE, A/OX 4, ABLE TO MAKE NEED KNOWN. PATIENT ORIENTED TO ROOM AND CALL LIGHT SYSTEM. ON ROOM AIR, TOLERATING WELL. LUNGS CLEAR BILATERALLY UPON AUSCULTATION. BREATHING EVEN AND UNLABORED. NO SOB NOTED. NO COMPLAINTS OF PAIN AT THE MOMENT. WITH IV ACCESS ON RIGHT ANTECUBITAL #20G, PATENT INTACT AND FLUSHING WELL. SKIN ASSESSMENT DONE, WITH LEFT ELBOW LACERTION CLEANED AND DRESSED. WITH RIGHT HAND AND LEF LEG CUFFED TO BED. ALL BELONGINGS ACCOUNTED FOR . SAFETY PRECAUTIONS OBSERVED AND MAINTAINED. WILL CONTINUE TO MONITOR.
--- NOTE | 2024-03-16 22:00 | NUR ---
RN NOTE ACCU CHECK DONE 84MG/DL. NO INSULIN GIVEN
[2024-03-16] MEDS: BLOOD SUGAR DIAGNOSTIC 1 EACH STRIP IN SCH (22:51)
--- NOTE | 2024-03-16 23:30 | NUR ---
RN NOTE SPOKE WITH HOSPITALIST TO CHECK PATIENT'S NEED FOR CPAP. WILL ORDER BASE ON PATIENT'S NEED.
--- NOTE | 2024-03-16 23:33 | NUR ---
RN NOTE PATIENT REQUESTED FOR CPAP. ORDERED CPAP.
[2024-03-17] VITALS (7 sets, daily range): BP systolic 122–140; BP diastolic 72–92; TEMP 97.7–98.2; O2SAT 94–100
--- NOTE | 2024-03-17 01:05 | NUR ---
RN NOTE PATIENT COMPLAINING OF MILD SOB. PROVIDED O2 AT 2LPM. WILL CONTINUE TO MONITOR.
--- NOTE | 2024-03-17 01:25 | NUR ---
RT NOTE Pt rec'd on 3lnc. pt shows no signs of resp distress or sob. pt awake and alert. Pt placed on NOC cpap on noted settings per md orders. alarms are set and audible. bipap plugged into red outlet. ambu bag at bedside. Addendum: 03/17/24 at 0143 by ANAIS HINKLE RT Amended: Links added.
[2024-03-17] MEDS: IV NS 0.9% 1,000 ML IV PRN (05:00)
--- NOTE | 2024-03-17 06:36 | NUR ---
RN NOTE ACCU CHECK DONE 78MG/DL NO INSULIN GIVEN
--- NOTE | 2024-03-17 06:44 | NUR ---
RN CLOSING NOTE PATIENT ASLEEP ON BED, A/O X 4. ON O2 AT 2LPM TOLERATING WELL WITH NO RESPIRATORY DISTRESS NOTED. NO PAIN AND DISCOMFORT AT THESE TIME. WITH IV ACCESS AT RIGHT AC #20G SL. INTACT PATENT AND FLUSHING WELL. WITH LEFT ELBOW LACERATION, CLEANED AND DRESSING APPLIED. SAFETY MEASURES OBSERVED AND MAINTAINED. ENDORSED FOR DIOR
--- NOTE | 2024-03-17 07:25 | NUR ---
RN OPENING NOTE Received pt in bed, asleep, awaken easily. A/O x 4, able to make needs known, no c/o pain/discomfort at this time. On O2 via nc at 2lpm, tolerating well. IV access in RAC #20g running NS at 80ml/hr. On tele monitor with current reading of SR-61. Safety measures maintained. Will continue with plan of care.
--- NOTE | 2024-03-17 08:41 | NUR ---
WOUND CARE CONSULT: PT PRESENTS WITH LEFT ELBOW ABRASION/SKIN TEAR, PRESENT ON ADMISSION. DISCUSSED SKIN PROTECTION AND WOUND TREATMENT RECOMMENDATIONS WITH NURSING STAFF. MD IN AGREEMENT WITH PLAN OF CARE.
--- NOTE | 2024-03-17 09:10 | NUR ---
RN NOTE Physical therapist from pt's room and informed RN that pt's right arm where IV access placed is bleeding. Went to check IV access, tried to flush but noticed IV cannula is already broken, dry blood and no active bleeding noted. Two other RNs went inside the room to double check IV and confirmed that IV cannula is broken and cannot be found. Pt is accusing that RN removed and cut the cannula. Pt is also verbalizing that IV cannula is left inside the vein. Charge Nurse, Machine Pan Greaser and MD made aware. MD with new orders made.
--- NOTE | 2024-03-17 10:33 | NUR ---
egg worker consultation: egg worker consultation requested due to patient being in custody. egg worker spoke to Officer Js #[id number] and Officer Lucas #[id number] ([phone]) who informed the health social work professor that they will take the patient when he is ready to be discharged. The patient was alert and oriented x3. Patient was calm and cooperative during the assessment. Patients mood was guarded during the assessment for this story writer. The patient said he had fallen and cut his arm before being at the hospital. Patient stated that he has bipolar disorder and takes medication for it. Patient denied any substance abuse. Patient stated he has no income. Patient denied having any visual/auditory hallucinations. Patient denied any SI/HI ideation. DC PLAN: Patient will be taken into custody by Officer Js #[id number] and Officer Lucas #[id number] ([phone]) when ready to be discharged.
--- NOTE | 2024-03-17 11:46 | NUR ---
ZIPPER SETTER NOTE SEEN BY DR. ADORNO. WITH ORDERS MADE AND CARRIED OUT.
--- NOTE | 2024-03-17 18:45 | NUR ---
RN CLOSING NOTE Pt resting in bed, with health officer at bedside. A/O x 4, no c/o pain/discomfort at this time. On room air, tolerating well. With ELISA jesus #18g running NS at 80ml/hr. On tele monitor with current reading of SR-78. Needs attended. Safety measures maintained. Will endorse ren to shift superintendent. Addendum: 03/17/24 at 1915 by Jennifer Thompson RN Correction.. IV access in DAHLIA #18g running NS at 80ml/hr.
--- NOTE | 2024-03-17 19:00 | NUR ---
RN opening notes Received Pt from Renay BROWN. Pt is sitting in bed comfortably watching TV. Pt is on custody with two [employer] at the bedside. Pt is alert and orientedX4. On room air. No SOB. No S/S of distress noted. tele monitor showed SR hr at 67. IV site at L upperarm # 20 is clean, intact and infusing well ns @ 75 ml/hr. snacks is given and provided. safety precautions is maintained. Bed at low position, brakes locked, side railsup X2, hob elevated, urinal at the bedside, bed alarm is on and call light is within reach. will continue to [facility].
--- NOTE | 2024-03-17 20:50 | NUR ---
RN notes Fcolebotomist informed that Pt is a hard stcik and unable to get blood drawn since in the morning. Phelbotomsit also informed this is the fourth attempt. Called and spkoe with Marcelo RUSSELL that we are not able to get blood drawn that is scheduled todayand fourth attempt. SHOP TEACHER ordered for midline. Called and spoke with soledad Hoffman RN regarding midline ordered but no midline nurse for tonight. midline will be done tomorrow. Marcelo RUSSELL is aware and informed. will continue to monitor.
[2024-03-17] MEDS: INSULIN REGULAR, HUMAN 100 UNIT/ML 3 ML VIAL SQ PRN (21:26)
--- NOTE | 2024-03-17 23:23 | NUR ---
RN notes Pt refuses CPAP at this time. O2 sat is 95% on room air. No SOB. No S/S of distress noted. will continue to monitor.
[2024-03-18] VITALS: BP 129/87; TEMP 98.8; O2SAT 100
--- NOTE | 2024-03-18 00:30 | NUR ---
RN notes Pt requested bipap. RT Rainey at the bedside. Addendum: 03/18/24 at 0322 by JONO WARREN Pt requested Cpap. not bipap.
--- NOTE | 2024-03-18 03:04 | NUR ---
KEVIN notes Pt's off bipap. Pt is on room air. O2 sat is 95%. Addendum: 03/18/24 at 0321 by JONO WARREN not bipap. Pt is on NOC Cpap.
[2024-03-18 04:00] VITALS: BP 125/67; TEMP 98.2; O2SAT 98
--- NOTE | 2024-03-18 06:52 | NUR ---
RN closing notes Pt is resting in bed comfortably. Pt is on custody with two [employer] at the bedside. Pt is alert and orientedX4. On room air. No SOB. No S/S of distress noted. tele monitor showed SR hr at 68. IV site at L upperarm # 20 is clean, intact and infusing well ns @ 75 ml/hr. snacks is given and provided. Routine meds were given as ordered. Kept Pt clean, dry and comfortbale. safety precautions is maintained. Bed at low position, brakes locked, side railsup X2, hob elevated, urinal at the bedside, bed alarm is on and call light is within reach. Will endorse to am nurse for DIOR.
--- NOTE | 2024-03-18 07:27 | NUR ---
FOOD AND NUTRITION PROFESSOR OPENING NOTE RECEIVED PATIENT AWAKE IN BED. APPEARS COMFORTABLE, AFEBRILE, PATIENT IS ALERT/ORIENTED X 4, ABLE TO MAKE NEEDS KNOWN. PATIENT IS ON CUSTODY WITH 2 [employer] AT THE BEDSIDE. ON ROOM AIR, TOLERATING WELL, BREATHING EVENLY AND UNLABORED WITH SPO2 OF 99%. NO S/SX OF RESPIRATORY DISTRESS NOTED. PT DENIES ANY PAIN OR ANY DISCOMFORTS AT THIS TIME. PT DENIES ANY /SOB AT THIS MOMENT. PATIENT ON CONTINUOUS TELE MONITORING WITH CURRENT READING OF SR, HR 68. PT HAS IV ACCESS ON LEFT UPPER ARM G#20 WITH RUNNING NS@ 75ML/HR, INTACT, PATENT, AND INFUSING WELL WITH NO S/SX OF PHLEBITIS OR INFILTRATION NOTED. PT STILL NPO FOR CT ANGIO HEART WITH 3D IMAGE. PATIENT EXPRESSES NO OTHER NEEDS AT THIS TIME. NO FURTHER CONCERNS OF PRESENT. HOB SLIGHTLY ELEVATED. FALL AND SAFETY MEASURES IMPLEMENTED. BED IN LOWEST AND LOCKED POSITION, SIDE RAILS UP X2, BED ALARM ON, CALL LIGHT AND TRAY TABLE WITHIN EASY REACH. PLAN OF CARE ONGOING.
[2024-03-18 07:29] LABS: BASOPHILS # (AUTO) 0.1 K/uL (0.0-0.2); EOSINOPHILS # (AUTO) 0.6 K/uL (0.0-0.7); EOSINOPHILS % (AUTO) 7.7 % (0.0-6.0); HEMATOCRIT 41 % (39-51); HEMOGLOBIN 13.4 g/dL (13.5-17.5); LYMPHOCYTES # (AUTO) 2.2 K/uL (0.8-4.8); LYMPHOCYTES % (AUTO) 30.1 % (20.0-44.0); MEAN CORPUSCULAR HEMOGLOBIN 28 PG (26.0-33.0); MEAN CORPUSCULAR HGB CONC 33 g/dl (31.0-36.0); MEAN CORPUSCULAR VOLUME 85 fL (80-96); MONOCYTES # (AUTO) 0.6 K/uL (0.1-1.30); MONOCYTES % (AUTO) 8.4 % (2.0-12.0); NEUTROPHILS # (AUTO) 3.8 K/uL (1.8-8.9); NEUTROPHILS % (AUTO) 52.8 % (43.0-81.0); PLATELET COUNT (AUTO) 171 K/uL (150-450); RED CELL DISTRIBUTION WIDTH 14.6 % (11.5-15.0); WHITE BLOOD COUNT (AUTO) 7.2 K/uL (4.3-11.0)
[2024-03-18 07:51] LABS: CREATININE 0.7 mg/dL (0.6-1.3); POTASSIUM 4.2 mmol/L (3.5-5.1)
[2024-03-18 08:00] VITALS: BP 123/75; TEMP 97.9; O2SAT 99
[2024-03-18 10:46] LABS: MAGNESIUM 2.1 mg/dL (1.8-2.4)
[2024-03-18 16:00] VITALS: BP 143/80; TEMP 98.1; O2SAT 92
--- NOTE | 2024-03-18 18:13 | NUR ---
RN NOTE PATIENT IS NOW MEDSURG. TELE BOX MONITOR REMOVED AND HANDED IT BACK TO UNDERLAY STITCHER, JULIAN.
--- NOTE | 2024-03-18 19:13 | NUR ---
RN DISCHARGED NOTES PATIENT DISCHARGED AT [facility] IN A STABLE CONDITION. PATIENT IS ON CUSTODY WITH 2 [employer] AT THE BEDSIDE. A/OX4. AMBULATORY. AFEBRILE. ABLE TO MAKE NEEDS KNOWN. ON ROOM AIR, TOLERATING WELL, BREATHING EVENLY AND UNLABORED WITH SPO2 OF 98%. NO S/S OF RESPIRATORY DISTRESS NOTED. PT DENIES ANY PAIN OR ANY DISCOMFORTS AT THIS TIME. PT DENIES ANY SOB, , AND DIZZINESS AT THIS MOMENT. PATIENT REFUSED TO HAVE PHOTOS TAKEN OF SKIN ISSUES, REFUSED TO REMOVED THE ARMBAND, DECLINED TO BE TOUCH, AND NOT COOPERATIVE. THE PATIENT HAS A FOREIGN BODY ON HIS LEFT UPPER ARM, WHICH HE REPORTED WAS CAUSED BY THE IV NURSE YESTERDAY WHO REMOVES AND REINSERT HIS IV. FOREIGN OBJECT WAS NOT NOTED DURING PREVIOUS ROUNDS AND ASSESSMENT. HE PREFERS NOT TO HAVE IT REMOVED BY ME OR OTHER NURSES AND INSTEAD WISHES FOR A DOCTOR TO HANDLE THE REMOVAL. THE PATIENT IS NOT COOPERATING. DESPITE OFFERING SEVERAL OPTIONS FOR REMOVING THE FOREIGN BODY FROM HIS LEFT UPPER ARM. EDUCATION WAS PROVIDED ABOUT THE RISKS ASSOCIATED WITH NOT ALLOWING US TO REMOVE THE FOREIGN BODY, BUT THE PATIENT STILL REFUSED. HE REFUSED TO GO TO [facility] EM[facility]ENC[facility] ROOM FOR ASSESSMENT AND REMOVAL. HE EXPRESSED DISTRUST IN [facility] AND ITS DOCTORS, INSISTING ON BEING SEEN BY A DIFFERENT HOSPITAL OR [facility]. DESPITE MULTIPLE OPTIONS PROVIDED, THE PATIENT STILL REFUSED. THIS WITNESSED BY NURSING TURKEY CLEANER, ROBERT BROWN. TIFFANY BROWN, AND POLICE OFFICERS LV AND REZA. ALL BELONGINGS ACCOUNTED FOR, PT SIGNED BELONGINGS AND FILED ON PATIENT CHART. HEALTH TEACHINGS/DISCHARGE INSTRUCTIONS GIVEN TO PATIENT. PT VERBALIZED UNDERSTANDING. IV ACCESS ON LEFT UPPER ARM G#20 REMOVED, CATHETER TIP INTACT, PRESSURE DRESSING APPLIED, NO SIGNS OF BLEEDING NOTED. PATIENT LEFT UNIT @ 1907 ACCOMPANIED BY 2 [employer] OFFICER AND VALENTINO MATTHEWS. CHARGE NURSE AND DOCTOR AWARE OF D/C.
== END 2024-03-18 19:15 | DRG 641 ==
LOC: ER 15:21 → TELE 20:50 → MED 03-18 11:55
PROVIDERS: ATTEND Student in an Organized Health Care Education/Training Program
DX: E86.0 Dehydration (principal); Z68.42 Body mass index [BMI] 45.0-49.9, adult; R07.89 Other chest pain; E11.9 Type 2 diabetes mellitus without complications; E78.5 Hyperlipidemia, unspecified; Z86.711 Personal history of pulmonary embolism; R55 Syncope and collapse; R06.4 Hyperventilation; Z83.3 Family history of diabetes mellitus; Z85.038 Personal history of other malignant neoplasm of large intestine; E66.01 Morbid (severe) obesity due to excess calories; I10 Essential (primary) hypertension; J45.909 Unspecified asthma, uncomplicated; F19.11 Other psychoactive substance abuse, in remission; F17.210 Nicotine dependence, cigarettes, uncomplicated; G47.33 Obstructive sleep apnea (adult) (pediatric); I70.0 Atherosclerosis of aorta; R93.1 Abnormal findings on diagnostic imaging of heart and coronary circulation; S40.022A Contusion of left upper arm, initial encounter; W06.XXXA Fall from bed, initial encounter; Y93.89 Activity, other specified; Y92.238 Other place in hospital as the place of occurrence of the external cause
CPT/HCPCS: 36415; 71045-TC; 73030-TC; 73060-TC; 73080-TC; 80048-TC; 82962-TC; 83735-TC; 83880; 84100-TC; 84484-TC; 85025-TC; 85730-TC; 87081-TC; 93307-TC; 93971-TC; 94799-TC; 97116-TC; 97530-TC; A4223; G0378; J1815; J7030; J7050; Q9967

== ENCOUNTER 2025-01-31 14:48 | Emergency (ER) | payer OTHER ==
[~2025-01-31] VITALS: Ht 170.2 cm; Wt 122.5 kg
[2025-01-31] MEDS ORDERED: AMMONIA NASAL INHALATION 1 EA PACK NAS ONE (15:10)
[2025-01-31 16:48] LABS: ASPARTATE AMINOTRANSFERASE 26 U/L (15-37); CALCIUM, SERUM 9.3 mg/dL (8.5-10.1); CREATININE 0.9 mg/dL (0.6-1.3); SODIUM SERUM 133 mmol/L (136-145); TOTAL PROTEIN, SERUM 8.5 g/dL (6.4-8.2); UREA NITROGEN, BLOOD 16 mg/dL (7-18)
[2025-01-31 18:40] LABS: PLATELET COUNT (AUTO) 245 K/uL (150-450); RED BLOOD CELL COUNT(AUTO) 5.39 MIL/uL (4.5-6.0); RED CELL DISTRIBUTION WIDTH 15.6 % (11.5-15.0); WHITE BLOOD COUNT (AUTO) 8.4 K/uL (4.3-11.0)
[2025-01-31 19:14] LABS: APPEARANCE,URINE CLEAR (CLEAR); BLOOD, URINE NEGATIVE Ery/uL (NEGATIVE); LEUKOCYTE ESTERASE ,URINE NEGATIVE (NEGATIVE); NITRITE, URINE POSITIVE (NEGATIVE); UGLUCOSE TRACE mg/dL (NEGATIVE)
[2025-01-31 19:15] LABS: ADD URINE CULTURE YES; SQUAMOUS EPITHELIAL CELL,UR Rare /HPF (None Seen)
[2025-01-31 19:16] LABS: CALCIUM OXALATE CRYSTALS,UR Few /HPF (None Seen)
[2025-01-31] MEDS ORDERED: CIPR500S2 PO (19:35)
[2025-01-31 20:04] VITALS: BP 142/89; TEMP 97.6; O2SAT 98
[2025-02-04] MEDS ORDERED: CIPR-262 PO (12:50)
== END 2025-01-31 20:04 | disposition home or self-care (01) ==
LOC: ER 14:50
DX: N39.0 Urinary tract infection, site not specified (principal); I10 Essential (primary) hypertension; E11.9 Type 2 diabetes mellitus without complications; F17.200 Nicotine dependence, unspecified, uncomplicated; Z98.890 Other specified postprocedural states; Z88.8 Allergy status to other drugs, medicaments and biological substances
CPT/HCPCS: 36415; 80048-TC; 80076-TC; 81001; 84484-TC; 85025-TC; 87086-TC